=== PATIENT | female | born 1975 | race Caucasian/White ===

== ENCOUNTER → 2022-07-12 | Outpatient (CLI) | payer BC ==
[2022-07-12 14:11] LABS: BASO % 0.3 % (0.0-1.0); EOS # 0.1 10^3/uL (0.0-0.5); EOS % 1.3 % (0.0-3.0); HEMATOCRIT 22.8 % (36.0-47.0); LYMPH # 0.8 10^3/uL (1.5-5.0); LYMPH % 11.7 % (24.0-44.0); MEAN CORPUSCULAR VOLUME 68.1 fl (80.0-96.0); MONO # 0.5 10^3/uL (0.0-0.8); MONO % 7.4 % (2.0-8.0); NEUTROPHILS # 5.6 10^3/uL (1.5-8.5); PLATELET COUNT, AUTOMATED 334 10^3/uL (150-450); RED BLOOD COUNT 3.35 10^6/uL (4.00-5.40)
[2022-07-12 14:27] LABS: INR 1.1; PROTHROMBIN TIME 14.5 SECONDS (12.5-14.5)
[2022-07-12 14:28] LABS: PARTIAL THROMBOPLASTIN TIME 28.4 SECONDS (24.8-34.2)
[2022-07-12 14:47] LABS: HEMOGLOBIN 5.7 g/dl (12.0-15.5)
[2022-07-12 14:57] LABS: ALBUMIN 3.8 GM/DL (3.2-5.2); ALT/SGPT 17 U/L (12-78); BILIRUBIN,TOTAL 0.9 MG/DL (0.2-1.0); BLOOD UREA NITROGEN 10 MG/DL (7-18); CALCIUM LEVEL 8.9 MG/DL (8.5-10.1); CARBON DIOXIDE LEVEL 22 MEQ/L (21-32); CHLORIDE LEVEL 106 MEQ/L (98-107); FERRITIN < 3 NG/ML (8-252); FREE T4 1.04 NG/DL (0.76-1.46); GLOMERULAR FILTRATION RATE > 60.0 (>58); GLUCOSE, FASTING 111 MG/DL (70-100); POTASSIUM SERUM 4.1 MEQ/L (3.5-5.1); SODIUM LEVEL 137 MEQ/L (136-145); TOTAL PROTEIN 9.7 GM/DL (6.4-8.2)
== END ==
LOC: M PLALAB 10:52
PROVIDERS: ATTEND Family Medicine
DX: D64.9 Anemia, unspecified (principal); I10 Essential (primary) hypertension

== ENCOUNTER → 2022-07-12 | Outpatient (REF) | payer BC | LOC: M SFHCPLAZ 11:49 | PROVIDERS: ATTEND Family Medicine | DX: I10 Essential (primary) hypertension (principal); D64.9 Anemia, unspecified; N92.1 Excessive and frequent menstruation with irregular cycle ==

== ENCOUNTER → 2022-07-17 | Outpatient (CLI) | payer BC ==
[~2022-07-17] MED LIST: BIOT1CAP2 PO; IRON100T PO; LOSA50TA5 PO
== END ==
LOC: M LAB 17:02
PROVIDERS: ATTEND Family Medicine
DX: D64.9 Anemia, unspecified (principal)

== ENCOUNTER 2022-07-18 08:59 | Outpatient (CLI) | payer BC ==
[~2022-07-18] VITALS: Ht 170.2 cm; Wt 84.0 kg
[2022-07-18] VITALS (8 sets, daily range): BP systolic 137–163; BP diastolic 61–75
[~2022-07-18 08:59] MED LIST changes: +ACETAMINOPHEN 500 MG TAB PO PRN; -BIOT1CAP2 PO; -IRON100T PO; -LOSA50TA5 PO; +diphenhydrAMINE 25MG CAP PO PRN
[2022-07-18] MEDS ORDERED: IRON100T PO (09:30)
[2022-07-18] MEDS ORDERED: BIOT1CAP2 PO (09:30)
[2022-07-18] MEDS ORDERED: LOSA50TA5 PO (09:30)
== END 2022-07-18 13:10 | disposition home or self-care (01) ==
LOC: M INFU 08:59
PROVIDERS: ATTEND Family Medicine
DX: D50.0 Iron deficiency anemia secondary to blood loss (chronic) (principal); Z88.6 Allergy status to analgesic agent; Z91.030 Bee allergy status
CPT/HCPCS: 36430; 86905; 86920; P9016

== ENCOUNTER → 2022-08-06 | Outpatient (CLI) | payer BC ==
[~2022-08-06] MED LIST changes: -ACETAMINOPHEN 500 MG TAB PO PRN; +BIOT1CAP2 PO; +IRON100T PO; +LOSA50TA5 PO; -diphenhydrAMINE 25MG CAP PO PRN
[2022-08-06 15:04] LABS: HEMATOCRIT 27.9 % (36.0-47.0); HEMOGLOBIN 7.8 g/dl (12.0-15.5); MEAN CORPUSCULAR HEMOGLOBIN 21.1 pg (27.0-33.0); MEAN CORPUSCULAR VOLUME 75.6 fl (80.0-96.0); PLATELET COUNT, AUTOMATED 358 10^3/uL (150-450); RED BLOOD COUNT 3.69 10^6/uL (4.00-5.40); WHITE BLOOD COUNT 6.3 10^3/uL (4.0-10.0)
[2022-08-06 15:16] LABS: CARBON DIOXIDE LEVEL 26 MMOL/L (20-31); CHLORIDE LEVEL 103 MMOL/L (98-107); SODIUM LEVEL 139 MMOL/L (136-145)
[2022-08-06 15:21] LABS: CALCIUM LEVEL 9.2 MG/DL (8.5-10.1)
[2022-08-06 15:22] LABS: BLOOD UREA NITROGEN 14 MG/DL (9-23); GLUCOSE, FASTING 94 MG/DL (60-100)
[2022-08-06 15:24] LABS: CREATININE FOR GFR 0.76 MG/DL (0.55-1.30); GLOMERULAR FILTRATION RATE > 60.0 (>58); IRON (FE) 23 UG/DL (50-170); PERCENT SATURATION 5.6 % (13.2-45.0); TOTAL IRON BINDING CAPACITY 409 UG/DL (250-425)
[2022-08-06 15:28] LABS: FERRITIN 7.2 NG/ML (7.3-270.7)
[2022-08-06 15:32] LABS: CREATININE, URINE 182.1 MG/DL
[2022-08-06 15:33] LABS: MALB URINE SIEMENS < 5.0 MG/DL; MAU/CREAT RATIO 2.7 MCG/MG (0.0-30.0)
== END ==
LOC: M PLALAB 10:01
PROVIDERS: ATTEND Family Medicine
DX: D64.9 Anemia, unspecified (principal)

== ENCOUNTER 2022-08-15 11:40 | Outpatient (CLI) | payer BC ==
[~2022-08-15] VITALS: Ht 170.2 cm; Wt 84.5 kg
[2022-08-15 11:40] VITALS: BP 142/63
[~2022-08-15 11:40] MED LIST changes: +ALBUTEROL SULFATE 2.5 MG/0.5 ML INH NEB SOLN INH PRN; +EPINEPHrine INJ 1 MG/ML 1ML AMP IM PRN; +diphenhydrAMINE 50MG/ML VIAL IV PRN; +methylPREDNISolone 125MG 2ML VIAL IV PRN
[2022-08-15] MEDS ORDERED: NS 1,000 ML IV SCH (12:00)
[2022-08-15] MEDS ORDERED: IRON SUCROSE 300 MG in NS 250 ML OVER 90 MIN. IV ONE (12:00)
[2022-08-15 13:45] VITALS: BP 134/63
== END 2022-08-15 13:45 | disposition home or self-care (01) ==
LOC: M INFU 11:40
PROVIDERS: ATTEND Family Medicine
DX: D50.9 Iron deficiency anemia, unspecified (principal); Z88.5 Allergy status to narcotic agent
CPT/HCPCS: 96365; J1756

== ENCOUNTER 2022-08-23 12:40 | Outpatient (CLI) | payer BC ==
[~2022-08-23 12:40] MED LIST changes: -ALBUTEROL SULFATE 2.5 MG/0.5 ML INH NEB SOLN INH PRN; -EPINEPHrine INJ 1 MG/ML 1ML AMP IM PRN; -diphenhydrAMINE 50MG/ML VIAL IV PRN; -methylPREDNISolone 125MG 2ML VIAL IV PRN
[2022-08-23] MEDS ORDERED: IRON SUCROSE 300 MG in NS 250 ML OVER 90 MIN. IV ONE (13:00)
[2022-08-23 13:40] VITALS: BP 146/72
[2022-08-23 14:50] VITALS: BP 133/71
== END 2022-08-23 14:55 | disposition home or self-care (01) ==
LOC: M INFU 12:40
PROVIDERS: ATTEND Family Medicine
DX: D50.9 Iron deficiency anemia, unspecified (principal); Z88.5 Allergy status to narcotic agent
CPT/HCPCS: 96365; 96366; J1756

== ENCOUNTER 2022-08-29 12:25 | Outpatient (CLI) | payer BC ==
[~2022-08-29] VITALS: Ht 170.2 cm; Wt 84.0 kg
[2022-08-29] MEDS ORDERED: IRON SUCROSE 300 MG in NS 250 ML OVER 90 MIN. IV ONE (12:30)
[2022-08-29 12:32] VITALS: BP 151/75
[2022-08-29 14:00] VITALS: BP 130/66
[2022-08-29 15:00] VITALS: BP 137/71
== END 2022-08-29 15:00 | disposition home or self-care (01) ==
LOC: M INFU 12:25
PROVIDERS: ATTEND Family Medicine
DX: D50.9 Iron deficiency anemia, unspecified (principal); Z88.5 Allergy status to narcotic agent
CPT/HCPCS: 96365; 96366; J1756

== ENCOUNTER → 2022-09-11 | Outpatient (CLI) | payer BC ==
[2022-09-11 18:43] LABS: HEMATOCRIT 23.3 % (36.0-47.0); HEMOGLOBIN 7.1 g/dl (12.0-15.5); MEAN CORPUSCULAR HEMOGLOBIN 26.3 pg (27.0-33.0); MEAN CORPUSCULAR HGB CONC 30.5 g/dl (32.0-36.5); MEAN CORPUSCULAR VOLUME 86.3 fl (80.0-96.0); PLATELET COUNT, AUTOMATED 325 10^3/uL (150-450); WHITE BLOOD COUNT 9.6 10^3/uL (4.0-10.0)
== END ==
LOC: M PLALAB 14:45
PROVIDERS: ATTEND Family Medicine
DX: N92.1 Excessive and frequent menstruation with irregular cycle (principal)

== ENCOUNTER 2022-09-16 12:09 | Inpatient (IN) | payer BC ==
[2022-09-16] VITALS (9 sets, daily range): BP systolic 131–153; BP diastolic 64–77
[~2022-09-16] VITALS: Ht 170.2 cm; Wt 85.5 kg
[2022-09-16] MEDS ORDERED: LARI1TAB5 PO (12:23)
[2022-09-16 12:48] LABS: BASO % 0.2 % (0.0-1.0); EOS # 0.1 10^3/uL (0.0-0.5); EOS % 0.3 % (0.0-3.0); HEMATOCRIT 24.5 % (36.0-47.0); HEMOGLOBIN 7.3 g/dl (12.0-15.5); LYMPH # 0.9 10^3/uL (1.5-5.0); LYMPH % 4.9 % (24.0-44.0); MEAN CORPUSCULAR HEMOGLOBIN 25.7 pg (27.0-33.0); MEAN CORPUSCULAR HGB CONC 29.8 g/dl (32.0-36.5); MEAN CORPUSCULAR VOLUME 86.3 fl (80.0-96.0); MONO # 0.9 10^3/uL (0.0-0.8); MONO % 4.9 % (2.0-8.0); NEUTROPHILS # 16.1 10^3/uL (1.5-8.5); NEUTROPHILS % 89.1 % (36.0-66.0); PLATELET COUNT, AUTOMATED 423 10^3/uL (150-450); RED BLOOD COUNT 2.84 10^6/uL (4.00-5.40); WHITE BLOOD COUNT 18.1 10^3/uL (4.0-10.0)
[2022-09-16 13:16] LABS: BLOOD UREA NITROGEN 15 MG/DL (9-23); CALCIUM LEVEL 8.6 MG/DL (8.5-10.1); CARBON DIOXIDE LEVEL 22 MMOL/L (20-31); CHLORIDE LEVEL 103 MMOL/L (98-107); CREATININE FOR GFR 0.98 MG/DL (0.55-1.30); GLOMERULAR FILTRATION RATE > 60.0 (>58); GLUCOSE, FASTING 138 MG/DL (60-100); POTASSIUM SERUM 4.6 MMOL/L (3.5-5.1); SODIUM LEVEL 136 MMOL/L (136-145)
[2022-09-16 14:53] LABS: HEMATOCRIT 19.7 % (36.0-47.0)
[2022-09-16] MEDS ORDERED: D5W/0.45% SODIUM CHLORIDE 1,000 ML IV SCH (18:50)
[2022-09-16] MEDS ORDERED: medroxyPROGESTERone 5MG TABLET PO STA (18:51)
[2022-09-16 19:35] LABS: RSV AMPLIFICATION NEGATIVE (NEGATIVE)
[2022-09-16] MEDS ORDERED: IBUP-1764 PO (20:13)
[2022-09-16] MEDS ORDERED: HOME MED LIST COMPLETE! XX SCH (20:15)
[2022-09-17 00:55] VITALS: BP 136/63
[2022-09-17 01:09] VITALS: BP 142/72
[2022-09-17 01:21] VITALS: BP 161/80
[2022-09-17] MEDS ORDERED: ACETAMINOPHEN TAB 650MG DOSE (2X325MG) PO ONE (02:00)
[2022-09-17] MEDS ORDERED: FUROSEMIDE 20MG/2ML VIAL IV ONE (02:00)
[2022-09-17 02:38] LABS: HEMATOCRIT 30.3 % (36.0-47.0)
[2022-09-17 02:43] LABS: HEMOGLOBIN 9.7 g/dl (12.0-15.5)
[2022-09-17] MEDS: GASTROGRAFIN SOLUTION 30ML PO SCH ×2 (05:44→06:21)
[2022-09-17 06:31] LABS: BASO % 0.2 % (0.0-1.0); EOS # 0.1 10^3/uL (0.0-0.5); EOS % 0.7 % (0.0-3.0); HEMOGLOBIN 9.9 g/dl (12.0-15.5); LYMPH # 0.7 10^3/uL (1.5-5.0); LYMPH % 8.5 % (24.0-44.0); MEAN CORPUSCULAR HEMOGLOBIN 26.8 pg (27.0-33.0); MEAN CORPUSCULAR HGB CONC 31.9 g/dl (32.0-36.5); MEAN CORPUSCULAR VOLUME 83.8 fl (80.0-96.0); MONO # 0.6 10^3/uL (0.0-0.8); MONO % 6.5 % (2.0-8.0); NEUTROPHILS # 7.3 10^3/uL (1.5-8.5); NEUTROPHILS % 83.6 % (36.0-66.0); PLATELET COUNT, AUTOMATED 283 10^3/uL (150-450); WHITE BLOOD COUNT 8.7 10^3/uL (4.0-10.0)
[2022-09-17 06:53] LABS: BLOOD UREA NITROGEN 15 MG/DL (9-23); CARBON DIOXIDE LEVEL 26 MMOL/L (20-31); CHLORIDE LEVEL 104 MMOL/L (98-107); CREATININE FOR GFR 0.96 MG/DL (0.55-1.30); GLOMERULAR FILTRATION RATE > 60.0 (>58); GLUCOSE, FASTING 101 MG/DL (60-100); POTASSIUM SERUM 3.7 MMOL/L (3.5-5.1); SODIUM LEVEL 139 MMOL/L (136-145)
[2022-09-17 07:00] VITALS: BP 143/73
[2022-09-17] MEDS ORDERED: ISOVUE-370 76% 100ML VIAL As Ordered ONE (07:24)
[2022-09-17] MEDS ORDERED: ACET-907 PO (14:52)
[2022-09-17] MEDS ORDERED: FERR325T3 PO (14:59)
== END 2022-09-17 10:45 | disposition home or self-care (01) | DRG 530 ==
LOC: M ED 12:09 → M ED INP 18:45
PROVIDERS: ADMIT Internal Medicine; ATTEND Internal Medicine
PROC: 30233N1 Transfusion of Nonautologous Red Blood Cells into Peripheral Vein, Percutaneous Approach (ICD-10-PCS; principal; 2022-09-16)
DX: C53.9 Malignant neoplasm of cervix uteri, unspecified (principal); D62 Acute posthemorrhagic anemia; I10 Essential (primary) hypertension; G43.909 Migraine, unspecified, not intractable, without status migrainosus; Z90.49 Acquired absence of other specified parts of digestive tract; L30.9 Dermatitis, unspecified; G25.0 Essential tremor; Z79.899 Other long term (current) drug therapy; Z91.030 Bee allergy status; Z88.5 Allergy status to narcotic agent

== ENCOUNTER → 2022-10-07 | Outpatient (CLI) | payer BC ==
[~2022-10-07] MED LIST changes: +ACET-907 PO; +FERR325T3 PO; +IBUP-1764 PO; +LARI1TAB5 PO; +NORT1TAB3 PO
[2022-10-07 14:57] LABS: BASO % 0.3 % (0.0-1.0); EOS # 0.1 10^3/uL (0.0-0.5); EOS % 0.6 % (0.0-3.0); LYMPH % 8.3 % (24.0-44.0); MEAN CORPUSCULAR HEMOGLOBIN 29.2 pg (27.0-33.0); MEAN CORPUSCULAR HGB CONC 32.1 g/dl (32.0-36.5); MEAN CORPUSCULAR VOLUME 90.9 fl (80.0-96.0); MONO # 0.7 10^3/uL (0.0-0.8); MONO % 5.7 % (2.0-8.0); NEUTROPHILS # 9.8 10^3/uL (1.5-8.5); NEUTROPHILS % 84.7 % (36.0-66.0); PLATELET COUNT, AUTOMATED 388 10^3/uL (150-450); RED BLOOD COUNT 3.08 10^6/uL (4.00-5.40); WHITE BLOOD COUNT 11.6 10^3/uL (4.0-10.0)
[2022-10-07 15:49] LABS: ALBUMIN 3.7 G/DL (3.2-5.2); ALKALINE PHOSPHATASE 45 U/L (46-116); ALT/SGPT 12 U/L (7.0-40); AST/SGOT 18 U/L (<34); BILIRUBIN,TOTAL 1.4 MG/DL (0.3-1.2); BLOOD UREA NITROGEN 16 MG/DL (9-23); CALCIUM LEVEL 8.8 MG/DL (8.5-10.1); CARBON DIOXIDE LEVEL 23 MMOL/L (20-31); CHLORIDE LEVEL 102 MMOL/L (98-107); CREATININE FOR GFR 0.86 MG/DL (0.55-1.30); GLOMERULAR FILTRATION RATE > 60.0 (>58); GLUCOSE, FASTING 103 MG/DL (60-100); POTASSIUM SERUM 3.5 MMOL/L (3.5-5.1); SODIUM LEVEL 135 MMOL/L (136-145); TOTAL PROTEIN 8.3 G/DL (5.7-8.2)
== END ==
LOC: M ONCR 12:56
PROVIDERS: ATTEND General Practice
DX: C56.2 Malignant neoplasm of left ovary (principal); I10 Essential (primary) hypertension; Z79.899 Other long term (current) drug therapy; Z80.3 Family history of malignant neoplasm of breast; Z87.442 Personal history of urinary calculi; Z88.5 Allergy status to narcotic agent; Z91.030 Bee allergy status; Z92.3 Personal history of irradiation
CPT/HCPCS: 36415; 80053; 85025; G0463

== ENCOUNTER → 2022-10-08 | Outpatient (RCR) | payer BC ==
[~2022-10-08] MED LIST changes: +FERR325T15 PO; +VITA-198 PO; +VITA500T16 PO
== END ==
LOC: M ONCR 14:21
PROVIDERS: ATTEND General Practice
DX: C53.8 Malignant neoplasm of overlapping sites of cervix uteri (principal)

== ENCOUNTER → 2022-10-21 | Outpatient (CLI) | payer BC ==
[~2022-10-21] MED LIST changes: +LIDO1CRE42 TOP; +LIDOCAINE 1% MDV 20ML VIAL As Ordered ONE; +LOPE1CAP5 PO; +MEPERIDINE 25 MG/ML 1ML VIAL As Ordered ONE; +METO10TA2 PO; +MIDAZOLAM INJ 2MG/2ML VIAL As Ordered ONE; +NS 1,000 ML IV SCH; +ONDA4TAB6 PO; +ceFAZolin 2 GM/D5W 50 ML IV BAG As Ordered ONE; +ceFAZolin SOD 2 GM in IV 1 EA IV ONE; +diphenhydrAMINE 50MG/ML VIAL As Ordered ONE; +fentaNYL 100 MCG/2 ML INJECTION As Ordered ONE
[2022-10-21 12:54] VITALS: BP 148/75
== END ==
LOC: M IRPRO 10:31
PROVIDERS: ATTEND Internal Medicine Medical Oncology
DX: C53.1 Malignant neoplasm of exocervix (principal)
CPT/HCPCS: 36561; 87635; J0690; J1200; J1642; J1644; J2250; J3010

== ENCOUNTER → 2022-10-23 | Outpatient (REF) | payer BC ==
[~2022-10-23] MED LIST changes: -LIDO1CRE42 TOP; -LIDOCAINE 1% MDV 20ML VIAL As Ordered ONE; -LOPE1CAP5 PO; -MEPERIDINE 25 MG/ML 1ML VIAL As Ordered ONE; -METO10TA2 PO; -MIDAZOLAM INJ 2MG/2ML VIAL As Ordered ONE; -NS 1,000 ML IV SCH; -ceFAZolin 2 GM/D5W 50 ML IV BAG As Ordered ONE; -ceFAZolin SOD 2 GM in IV 1 EA IV ONE; -diphenhydrAMINE 50MG/ML VIAL As Ordered ONE; -fentaNYL 100 MCG/2 ML INJECTION As Ordered ONE
== END ==
LOC: M LAB REF 08:16
PROVIDERS: ATTEND Internal Medicine Hematology
DX: Z01.89 Encounter for other specified special examinations (principal)

== ENCOUNTER 2022-10-24 06:26 | Outpatient (CLI) | payer BC ==
[~2022-10-24] VITALS: Ht 170.2 cm; Wt 83.2 kg
[2022-10-24 06:39] VITALS: BP 160/67
[2022-10-24] MEDS ORDERED: diphenhydrAMINE 25MG CAP PO SCH (07:00)
[2022-10-24] MEDS ORDERED: ACETAMINOPHEN TAB 650MG DOSE (2X325MG) PO SCH (07:01)
[2022-10-24 07:10] VITALS: BP 160/67
[2022-10-24 07:24] VITALS: BP 131/68
[2022-10-24 08:25] VITALS: BP 144/77
[2022-10-24 08:50] VITALS: BP 153/76
[2022-10-24 09:55] VITALS: BP 152/71
[2022-10-25] MEDS ORDERED: ONDA4TAB6 PO (15:40)
[2022-10-25] MEDS ORDERED: METO10TA2 PO (16:14)
== END 2022-10-24 10:05 | disposition home or self-care (01) ==
LOC: M INFU 06:26
PROVIDERS: ATTEND Internal Medicine Medical Oncology
DX: D64.9 Anemia, unspecified (principal); Z88.5 Allergy status to narcotic agent
CPT/HCPCS: 36430; P9016

== ENCOUNTER 2022-10-24 06:30 | Outpatient (CLI) | payer BC ==
[~2022-10-24] VITALS: Ht 167.6 cm; Wt 83.0 kg
[2022-10-24] MEDS ORDERED: ONDANSETRON 4MG 2ML VIAL IV PRN (07:55)
[2022-10-24] MEDS ORDERED: NORCO, ANEXSIA 5/325MG TABLET (HYDROcodone/ACETAMINOPHEN) PO PRN (07:55)
[2022-10-24] MEDS ORDERED: LR 1,000 ML IV SCH ×2 (07:55)
[2022-10-24] MEDS ORDERED: HYDROMORPHONE HCL 0.5 MG/ 0.5 ML SYRINGE IV PRN (07:55)
[2022-10-24] MEDS ORDERED: MEPERIDINE 25 MG/ML 1ML VIAL IV PRN (07:55)
[2022-10-24] MEDS ORDERED: LABETALOL 100MG/20ML VIAL IV PRN (07:55)
[2022-10-24] MEDS ORDERED: fentaNYL 100 MCG/2 ML INJECTION IV PRN (07:55)
[2022-10-24] MEDS ORDERED: NS 1,000 ML IV SCH (09:15)
[2022-10-24] MEDS ORDERED: ceFAZolin SOD 2 GM in IV 1 EA IV ONE (09:15)
[2022-10-24] MEDS ORDERED: LIDOCAINE 1% MDV 20ML VIAL As Ordered ONE (10:53)
[2022-10-24] MEDS ORDERED: diphenhydrAMINE 25MG CAP PO ONE (12:00)
[2022-10-24] MEDS ORDERED: ACETAMINOPHEN TAB 650MG DOSE (2X325MG) PO ONE (12:00)
[2022-10-24] MEDS ORDERED: ceFAZolin 2 GM/D5W 50 ML IV BAG As Ordered ONE (12:27)
[2022-10-24] MEDS ORDERED: ONDANSETRON 4MG 2ML VIAL IV ONE (13:55)
[2022-10-24 17:30] VITALS: BP 160/81
[2022-10-25] MEDS ORDERED: ONDA4TAB6 PO (15:40)
[2022-10-25] MEDS ORDERED: METO10TA2 PO (16:14)
[2022-10-30] MEDS ORDERED: LOPE1CAP5 PO (08:11)
[2022-10-30] MEDS ORDERED: LIDO1CRE42 TOP (08:11)
[2022-11-11] MEDS ORDERED: DEXA4TA PO (16:03)
[2022-11-21] MEDS ORDERED: POTA-151 PO (16:15)
[2022-12-20] MEDS ORDERED: ONDA4TAB6 PO ×2 (12:15→15:11)
[2022-12-20] MEDS ORDERED: METO10TA2 PO ×2 (12:15→15:11)
== END 2022-10-24 17:36 | disposition home or self-care (01) ==
LOC: M IRPRO 06:30
PROVIDERS: ATTEND Internal Medicine Medical Oncology
DX: C53.9 Malignant neoplasm of cervix uteri, unspecified (principal)
CPT/HCPCS: 36561; C1769; C1788; C1894; J0690; J1642; J1644; J2405; P9016

== ENCOUNTER → 2022-10-25 | Outpatient (POV) | payer BC ==
[~2022-10-25] MED LIST changes: +DEXA4TA PO; +LIDO1CRE42 TOP; +LOPE1CAP5 PO; +METO10TA2 PO
== END ==
LOC: M IRPOV 06:35
PROVIDERS: ATTEND Radiology Diagnostic Radiology
DX: Z01.89 Encounter for other specified special examinations (principal)

== ENCOUNTER → 2022-11-05 | Outpatient (RCR) | payer BC ==
[~2022-11-05] MED LIST changes: -DEXA4TA PO; +LIDOCAINE 2% 100MG/5ML SDV (FOR ANES.) As Ordered ONE; +MIDAZOLAM INJ 2MG/2ML VIAL As Ordered ONE; +fentaNYL 100 MCG/2 ML INJECTION As Ordered ONE; +propofoL 200 MG/20 ML VIAL As Ordered ONE
== END ==
LOC: M ONCR 10-09 10:41
PROVIDERS: ATTEND General Practice
DX: C53.8 Malignant neoplasm of overlapping sites of cervix uteri (principal)
CPT/HCPCS: 77300; 77301; 77336; 77338; 77386; 77470; J2250; J3010

== ENCOUNTER → 2022-11-12 | Outpatient (CLI) | payer BC ==
[~2022-11-12] MED LIST changes: +DEXA4TA PO; -LIDOCAINE 2% 100MG/5ML SDV (FOR ANES.) As Ordered ONE; -MIDAZOLAM INJ 2MG/2ML VIAL As Ordered ONE; +PROHANCE 279.3MG/ML 15ML VIAL As Ordered ONE; -fentaNYL 100 MCG/2 ML INJECTION As Ordered ONE; -propofoL 200 MG/20 ML VIAL As Ordered ONE
== END ==
LOC: M RAD 15:34
PROVIDERS: ATTEND General Practice
DX: C53.8 Malignant neoplasm of overlapping sites of cervix uteri (principal)

== ENCOUNTER 2022-11-22 15:32 | Outpatient (RCR) | payer BC ==
[~2022-11-22 15:32] MED LIST changes: +POTA-151 PO; -PROHANCE 279.3MG/ML 15ML VIAL As Ordered ONE
[2022-11-27] MEDS ORDERED: DEXA4TA PO (15:01)
[2022-11-29] MEDS ORDERED: CALC500T60 PO (08:51)
[2022-11-29] MEDS ORDERED: MAGN400T2 PO (08:51)
[2022-11-29] MEDS ORDERED: DEXA4TA PO (08:51)
[2022-11-29] MEDS ORDERED: LOPE2CA PO (08:51)
[2022-11-29] MEDS ORDERED: VITAD1000T PO (09:00)
[2022-12-02] MEDS ORDERED: TUMS500C PO (10:38)
[2022-12-02] MEDS ORDERED: LEVO1TAB39 PO (13:22)
== END 2022-12-06 ==
LOC: M ONCR 15:32
PROVIDERS: ATTEND General Practice
DX: C53.8 Malignant neoplasm of overlapping sites of cervix uteri (principal)

== ENCOUNTER 2022-11-27 11:44 | Inpatient (IN) | payer BC ==
[~2022-11-27] VITALS: Ht 165.1 cm; Wt 82.1 kg
[2022-11-27 12:30] VITALS: BP 132/62
[2022-11-27] MEDS ORDERED: ONDANSETRON 4MG 2ML VIAL IV PRN (13:15)
[2022-11-27] MEDS ORDERED: HEPARIN SOD (PORCINE) 5000UNITS/ML 1ML VIAL/SYRINGE SQ SCH (14:00)
[2022-11-27] MEDS: NS 1,000 ML IV SCH ×2 (14:17→22:37)
[2022-11-27 14:32] LABS: INR 1.01; PROTHROMBIN TIME 13.5 SECONDS (12.5-14.5)
[2022-11-27 14:33] LABS: EOS % 0.3 % (0.0-3.0); HEMATOCRIT 21.9 % (36.0-47.0); HEMOGLOBIN 7.8 g/dl (12.0-15.5); LYMPH % 0.8 % (24.0-44.0); MEAN CORPUSCULAR HEMOGLOBIN 31.3 pg (27.0-33.0); MEAN CORPUSCULAR HGB CONC 35.6 g/dl (32.0-36.5); MONO # 0.2 10^3/uL (0.0-0.8); MONO % 4.1 % (2.0-8.0); NEUTROPHILS # 3.3 10^3/uL (1.5-8.5); NEUTROPHILS % 91.8 % (36.0-66.0); PARTIAL THROMBOPLASTIN TIME 23.5 SECONDS (24.8-34.2); RED BLOOD COUNT 2.49 10^6/uL (4.00-5.40); WHITE BLOOD COUNT 3.6 10^3/uL (4.0-10.0)
[2022-11-27 14:41] LABS: PERCENT SATURATION 37.9 % (13.2-45.0)
[2022-11-27 14:45] LABS: PLATELET COUNT, AUTOMATED 84 10^3/uL (150-450)
[2022-11-27 14:48] LABS: MAGNESIUM LEVEL 0.9 MG/DL (1.8-2.4); PHOSPHORUS LEVEL 2.2 MG/DL (2.5-4.9)
[2022-11-27 14:49] LABS: ALBUMIN 3.6 G/DL (3.2-5.2); BILIRUBIN,TOTAL 0.6 MG/DL (0.3-1.2); CALCIUM LEVEL 5.1 MG/DL (8.5-10.1); CREATININE FOR GFR 1.26 MG/DL (0.55-1.30); GLOMERULAR FILTRATION RATE 48.5 (>58); POTASSIUM SERUM 3.5 MMOL/L (3.5-5.1); TOTAL PROTEIN 7.2 G/DL (5.7-8.2)
[2022-11-27] MEDS ORDERED: DEXA4TA PO (15:01)
[2022-11-27] MEDS ORDERED: HOME MED LIST COMPLETE! XX SCH (15:05)
[2022-11-27] MEDS ORDERED: POTASSIUM CHLORIDE 10MEQ SR TABLET PO ONE (15:45)
[2022-11-27] MEDS ORDERED: CALCIUM GLUCONATE 1,000 MG in D5W MINI-BAG PLUS 100 ML IV ONE (16:00)
[2022-11-27 16:07] VITALS: BP 136/68
[2022-11-27] MEDS: MAG SULF 1GM/100ML (MAG RUN) 1 GM in IV 1 EA IV SCH ×2 (16:16→17:34)
[2022-11-27] MEDS: KCL 20MEQ IN 100ML SWI (KRUN) 20 MEQ in IV 1 EA IV SCH ×4 (17:14→18:07)
[2022-11-27] MEDS ORDERED: POTASSIUM PHOSPHATE INJ 20 MMOL in D5W 250 ML IV ONE (19:00)
[2022-11-27 19:18] LABS: FERRITIN 533.4 NG/ML (7.3-270.7)
[2022-11-27 19:34] LABS: HEMOGLOBIN 7.2 g/dl (12.0-15.5); MEAN CORPUSCULAR HGB CONC 35.3 g/dl (32.0-36.5); MEAN CORPUSCULAR VOLUME 87.9 fl (80.0-96.0); RED BLOOD COUNT 2.32 10^6/uL (4.00-5.40)
[2022-11-27 19:37] LABS: HEMATOCRIT 20.4 % (36.0-47.0); PLATELET COUNT, AUTOMATED 78 10^3/uL (150-450)
[2022-11-27 19:47] LABS: CALCIUM LEVEL 5.6 MG/DL (8.5-10.1); CREATININE FOR GFR 1.2 MG/DL (0.55-1.30); GLOMERULAR FILTRATION RATE 51.3 (>58); POTASSIUM SERUM 3.7 MMOL/L (3.5-5.1)
[2022-11-27 20:15] VITALS: BP 122/58
[2022-11-28] VITALS (16 sets, daily range): BP systolic 103–154; BP diastolic 53–69
[2022-11-28 01:05] LABS: ALBUMIN 3.1 G/DL (3.2-5.2); BILIRUBIN,TOTAL 0.6 MG/DL (0.3-1.2); CALCIUM LEVEL 4.9 MG/DL (8.5-10.1); CREATININE FOR GFR 1.14 MG/DL (0.55-1.30); GLOMERULAR FILTRATION RATE 54.4 (>58); MAGNESIUM LEVEL 1.3 MG/DL (1.8-2.4); POTASSIUM SERUM 3.5 MMOL/L (3.5-5.1)
[2022-11-28] MEDS: CALCIUM GLUCONATE 1,000 MG in D5W MINI-BAG PLUS 100 ML IV SCH ×4 (01:28→08:39)
[2022-11-28] MEDS: MAG SULF 1GM/100ML (MAG RUN) 1 GM in IV 1 EA IV SCH ×2 (01:28→02:38)
[2022-11-28] MEDS ORDERED: ACETAMINOPHEN TAB 650MG DOSE (2X325MG) PO PRN (03:45)
[2022-11-28] MEDS ORDERED: CALCIUM GLUCONATE 1,000 MG in D5W MINI-BAG PLUS 100 ML IV SCH (04:00)
[2022-11-28] MEDS ORDERED: IBUPROFEN 400MG TAB PO ONE (04:00)
[2022-11-28] MEDS: NS 1,000 ML IV SCH (06:37)
[2022-11-28 06:45] LABS: MEAN CORPUSCULAR HEMOGLOBIN 30.4 pg (27.0-33.0); MEAN CORPUSCULAR VOLUME 89.5 fl (80.0-96.0); RED BLOOD COUNT 1.81 10^6/uL (4.00-5.40); WHITE BLOOD COUNT 1.6 10^3/uL (4.0-10.0)
[2022-11-28 07:04] LABS: ALBUMIN 2.9 G/DL (3.2-5.2); BILIRUBIN,TOTAL 0.6 MG/DL (0.3-1.2); CALCIUM LEVEL 5.5 MG/DL (8.5-10.1); CREATININE FOR GFR 1.1 MG/DL (0.55-1.30); GLOMERULAR FILTRATION RATE 56.7 (>58); MAGNESIUM LEVEL 1.7 MG/DL (1.8-2.4); POTASSIUM SERUM 3.2 MMOL/L (3.5-5.1); TOTAL PROTEIN 5.7 G/DL (5.7-8.2)
[2022-11-28 07:16] LABS: HEMATOCRIT 16.2 % (36.0-47.0); HEMOGLOBIN 5.5 g/dl (12.0-15.5); PLATELET COUNT, AUTOMATED 57 10^3/uL (150-450)
[2022-11-28 08:10] LABS: PTH INTACT 332.4 PG/ML (18.5-88.0); TOTAL 25(OH) VITAMIN D 13.2 NG/ML (20.0-100.0)
[2022-11-28] MEDS: MAGNESIUM OXIDE 400MG TAB (MAG-OX) PO SCH ×2 (08:39→20:25)
[2022-11-28] MEDS ORDERED: CALCIUM CARBONATE 500 MG CHEW U/D PO SCH (09:00)
[2022-11-28] MEDS ORDERED: LOPERAMIDE 2 MG CAPLET PO PRN (09:20)
[2022-11-28] MEDS: KCL 20MEQ IN 100ML SWI (KRUN) 20 MEQ in IV 1 EA IV SCH ×6 (10:33→13:05)
[2022-11-28] MEDS ORDERED: MAG SULF 1GM/100ML (MAG RUN) 1 GM in IV 1 EA IV ONE ×2 (13:00→18:00)
[2022-11-28 16:37] LABS: ALBUMIN 3.2 G/DL (3.2-5.2); ALKALINE PHOSPHATASE 53 U/L (46-116); ALT/SGPT 278 U/L (7.0-40); AST/SGOT 76 U/L (<34); BILIRUBIN,TOTAL 2.2 MG/DL (0.3-1.2); BLOOD UREA NITROGEN 14 MG/DL (9-23); CALCIUM LEVEL 6.4 MG/DL (8.5-10.1); CARBON DIOXIDE LEVEL 21 MMOL/L (20-31); CHLORIDE LEVEL 105 MMOL/L (98-107); CREATININE FOR GFR 0.92 MG/DL (0.55-1.30); GLOMERULAR FILTRATION RATE > 60.0 (>58); GLUCOSE, FASTING 121 MG/DL (60-100); MAGNESIUM LEVEL 1.7 MG/DL (1.8-2.4); PHOSPHORUS LEVEL 2.8 MG/DL (2.5-4.9); POTASSIUM SERUM 4.5 MMOL/L (3.5-5.1); SODIUM LEVEL 135 MMOL/L (136-145); TOTAL PROTEIN 6.3 G/DL (5.7-8.2)
[2022-11-28] MEDS ORDERED: CALCITRIOL 0.25 MCG CAP (S0169) PO ONE (17:00)
[2022-11-28] MEDS: VITAMIN D 1,000 INTERNATIONAL UNITS TABLET PO SCH (17:38)
[2022-11-28 19:29] LABS: HEMOGLOBIN 9.8 g/dl (12.0-15.5)
[2022-11-28] MEDS: CALCIUM CARB SUSP 1250MG/5ML UNIT DOSE CUP PO SCH ×2 (20:25→20:33)
[2022-11-28] MEDS: CALCIUM CARBONATE 500 MG CHEW U/D PO SCH (21:14)
[2022-11-29 00:33] VITALS: BP 145/67
[2022-11-29 04:35] LABS: HEMATOCRIT 25.4 % (36.0-47.0); MEAN CORPUSCULAR HEMOGLOBIN 31.3 pg (27.0-33.0); MEAN CORPUSCULAR HGB CONC 35.4 g/dl (32.0-36.5); MEAN CORPUSCULAR VOLUME 88.2 fl (80.0-96.0); RED BLOOD COUNT 2.88 10^6/uL (4.00-5.40); WHITE BLOOD COUNT 1.3 10^3/uL (4.0-10.0)
[2022-11-29 04:37] LABS: PLATELET COUNT, AUTOMATED 45 10^3/uL (150-450)
[2022-11-29 04:41] VITALS: BP 148/72
[2022-11-29 07:42] LABS: BASO % 0.8 % (0.0-1.0); LYMPH # 0.1 10^3/uL (1.5-5.0); LYMPH % 4.5 % (24.0-44.0); MONO # 0.1 10^3/uL (0.0-0.8); MONO % 7.6 % (2.0-8.0); NEUTROPHILS # 1.1 10^3/uL (1.5-8.5); NEUTROPHILS % 80.3 % (36.0-66.0)
[2022-11-29 07:49] LABS: ALBUMIN 3.1 G/DL (3.2-5.2); ALKALINE PHOSPHATASE 51 U/L (46-116); ALT/SGPT 230 U/L (7.0-40); AST/SGOT 56 U/L (<34); BLOOD UREA NITROGEN 17 MG/DL (9-23); CALCIUM LEVEL 7.1 MG/DL (8.5-10.1); CARBON DIOXIDE LEVEL 23 MMOL/L (20-31); CHLORIDE LEVEL 107 MMOL/L (98-107); GLOMERULAR FILTRATION RATE > 60.0 (>58); GLUCOSE, FASTING 86 MG/DL (60-100); MAGNESIUM LEVEL 1.5 MG/DL (1.8-2.4); POTASSIUM SERUM 4.5 MMOL/L (3.5-5.1); SODIUM LEVEL 135 MMOL/L (136-145)
[2022-11-29 08:22] VITALS: BP 142/66
[2022-11-29] MEDS ORDERED: CALC500T60 PO (08:51)
[2022-11-29] MEDS ORDERED: LOPE2CA PO (08:51)
[2022-11-29] MEDS ORDERED: MAGN400T2 PO (08:51)
[2022-11-29] MEDS ORDERED: DEXA4TA PO (08:51)
[2022-11-29] MEDS ORDERED: VITAD1000T PO (09:00)
[2022-11-29] MEDS ORDERED: MAG SULF 1GM/100ML (MAG RUN) 1 GM in IV 1 EA IV ONE (09:00)
[2022-11-29] MEDS ORDERED: CALCITRIOL 0.25 MCG CAP (S0169) PO ONE (09:00)
[2022-11-29] MEDS ORDERED: CALCIUM CARBONATE 500 MG CHEW U/D PO SCH (09:00)
[2022-11-29] MEDS: CALCIUM CARBONATE 500 MG CHEW U/D PO SCH (09:15)
[2022-11-29] MEDS: MAGNESIUM OXIDE 400MG TAB (MAG-OX) PO SCH (09:16)
[2022-11-29] MEDS: VITAMIN D 1,000 INTERNATIONAL UNITS TABLET PO SCH (09:16)
[2022-11-29] MEDS ORDERED: FILGRASTIM 480 MCG/0.8 ML SYRINGE **SC ADMINISTRATION ONLY SC ONE (10:00)
[2022-11-29] MEDS ORDERED: SODIUM CHLORIDE 0.9% INJ 10 ML SYR IV PRN (11:15)
[2022-11-30] MEDS ORDERED: SODIUM CHLORIDE 0.9% INJ 10 ML SYR IV SCH (09:00)
== END 2022-11-29 12:07 | disposition home or self-care (01) | DRG 249 ==
LOC: M PCU 11:53
PROVIDERS: ADMIT Internal Medicine Nephrology; ATTEND Internal Medicine
PROC: 30233N1 Transfusion of Nonautologous Red Blood Cells into Peripheral Vein, Percutaneous Approach (ICD-10-PCS; principal; 2022-11-28)
DX: K52.1 Toxic gastroenteritis and colitis (principal); D61.810 Antineoplastic chemotherapy induced pancytopenia; N17.9 Acute kidney failure, unspecified; I10 Essential (primary) hypertension; C53.9 Malignant neoplasm of cervix uteri, unspecified; E86.0 Dehydration; E21.1 Secondary hyperparathyroidism, not elsewhere classified; T45.1X5A Adverse effect of antineoplastic and immunosuppressive drugs, initial encounter; G25.0 Essential tremor; G43.909 Migraine, unspecified, not intractable, without status migrainosus; L30.9 Dermatitis, unspecified; E87.6 Hypokalemia; R74.01 Elevation of levels of liver transaminase levels; D50.9 Iron deficiency anemia, unspecified; Z79.899 Other long term (current) drug therapy; Z88.5 Allergy status to narcotic agent; Z91.030 Bee allergy status; Z91.040 Latex allergy status; Z90.49 Acquired absence of other specified parts of digestive tract

== ENCOUNTER → 2022-12-20 | Outpatient (CLI) | payer BC ==
[~2022-12-20] MED LIST changes: +CALC500T60 PO; +LEVO1TAB39 PO; +LOPE2CA PO; +MAGN400T2 PO; +TUMS500C PO; +VITAD1000T PO
== END ==
LOC: M ONCR 11:14
PROVIDERS: ATTEND Radiology Radiation Oncology
DX: C53.9 Malignant neoplasm of cervix uteri, unspecified (principal); R25.1 Tremor, unspecified; Z79.899 Other long term (current) drug therapy; Z88.5 Allergy status to narcotic agent; Z87.891 Personal history of nicotine dependence; Z91.030 Bee allergy status; Z91.040 Latex allergy status; Z92.21 Personal history of antineoplastic chemotherapy; Z92.3 Personal history of irradiation

== ENCOUNTER → 2023-03-10 | Outpatient (CLI) | payer BC | LOC: M PLARAD 07:32 | PROVIDERS: ATTEND General Practice | DX: C53.8 Malignant neoplasm of overlapping sites of cervix uteri (principal) | CPT/HCPCS: 78815; A9552 ==

== ENCOUNTER → 2023-04-15 | Outpatient (CLI) | payer BC ==
[~2023-04-15] MED LIST changes: -LIDO1CRE42 TOP; +LIDO30CR18 TOP
== END ==
LOC: M ONCR 15:11
PROVIDERS: ATTEND General Practice
DX: C53.9 Malignant neoplasm of cervix uteri, unspecified (principal); C77.5 Secondary and unspecified malignant neoplasm of intrapelvic lymph nodes; Z88.5 Allergy status to narcotic agent; Z87.891 Personal history of nicotine dependence; Z91.030 Bee allergy status; Z91.040 Latex allergy status; Z92.21 Personal history of antineoplastic chemotherapy; Z92.3 Personal history of irradiation

== ENCOUNTER 2023-05-06 14:19 | Outpatient (RCR) | payer BC | END 2023-05-08 | LOC: M ONCR 14:19 | PROVIDERS: ATTEND General Practice | DX: Z51.0 Encounter for antineoplastic radiation therapy (principal); C53.8 Malignant neoplasm of overlapping sites of cervix uteri ==

== ENCOUNTER → 2023-05-08 | Outpatient (CLI) | payer BC | LOC: M RAD 07:25 | PROVIDERS: ATTEND Internal Medicine Medical Oncology | DX: C53.9 Malignant neoplasm of cervix uteri, unspecified (principal) ==

== ENCOUNTER 2023-08-05 14:06 | Inpatient (IN) | payer BC ==
[~2023-08-05] VITALS: Ht 170.2 cm; Wt 81.8 kg
[~2023-08-05 14:06] MED LIST changes: +AMLO1TAB24; +BENA25CA4 PO; +LOSA50TA28; +MAGICMW PO; +OXYC-517 PO; +ZYRTTAB8 PO
[2023-08-05] MEDS ORDERED: SODIUM CHLORIDE 0.9% INJ 10 ML SYR IV PRN (14:25)
[2023-08-05 15:16] LABS: HEMATOCRIT 23.7 % (36.0-47.0); HEMOGLOBIN 8.1 g/dl (12.0-15.5); MEAN CORPUSCULAR HEMOGLOBIN 31.4 pg (27.0-33.0); MEAN CORPUSCULAR HGB CONC 34.2 g/dl (32.0-36.5); MEAN CORPUSCULAR VOLUME 91.9 fl (80.0-96.0); PLATELET COUNT, AUTOMATED 107 10^3/uL (150-450); RED BLOOD COUNT 2.58 10^6/uL (4.00-5.40); WHITE BLOOD COUNT 2.2 10^3/uL (4.0-10.0)
[2023-08-05 15:34] LABS: INR 1.09; PROTHROMBIN TIME 13.8 SECONDS (12.5-14.5)
[2023-08-05 15:35] LABS: PARTIAL THROMBOPLASTIN TIME 27.3 SECONDS (24.8-34.2)
[2023-08-05 15:43] LABS: RSV AMPLIFICATION NEGATIVE (NEGATIVE)
[2023-08-05 15:44] LABS: BLOOD UREA NITROGEN 27 MG/DL (9-23); CALCIUM LEVEL 8.2 MG/DL (8.5-10.1); CARBON DIOXIDE LEVEL 21 MMOL/L (20-31); CHLORIDE LEVEL 106 MMOL/L (98-107); CREATININE FOR GFR 1.39 MG/DL (0.55-1.30); GLOMERULAR FILTRATION RATE 43.3 (>58); GLUCOSE, FASTING 97 MG/DL (60-100); MAGNESIUM LEVEL 1.8 MG/DL (1.8-2.4); POTASSIUM SERUM 4.9 MMOL/L (3.5-5.1); SODIUM LEVEL 137 MMOL/L (136-145)
[2023-08-05 15:46] LABS: THYROID STIMULATING HORMONE 3.976 uIU/ML (0.55-4.78)
[2023-08-05 15:48] LABS: ANISOCYTOSIS 2+; BASOPHILS 1 % (0-1); LYMPHOCYTES 9 % (16-44); NEUTROPHILS 90 % (28-66); PLATELET ESTIMATE DECREASED (NORMAL)
[2023-08-05] MEDS ORDERED: NS 1,000 ML IV ONE (15:50)
[2023-08-05] MEDS ORDERED: amLODIPine 5 MG TAB PO ONE (16:20)
[2023-08-05] MEDS ORDERED: ISOVUE-370 76% 100ML VIAL As Ordered ONE (16:20)
[2023-08-05] MEDS ORDERED: LOSARTAN 50MG TABLET PO ONE (16:20)
[2023-08-05 18:26] LABS: CK-MB VALUE MASS < 1.0 NG/ML (<3.6)
[2023-08-05 18:27] LABS: CPK CREATINE PHOSPHOKINASE 44 U/L (34-145); MB/CK RELATIVE INDEX 2.27 (< OR =4)
[2023-08-05] MEDS: CETIRIZINE (ZyrTEC) 10 MG TAB PO SCH (21:00)
[2023-08-05] MEDS: NS 1,000 ML IV SCH (22:55)
[2023-08-05] MEDS ORDERED: MOM 30ML SUSPENSION UDC PO PRN (22:55)
[2023-08-05] MEDS ORDERED: IBUPROFEN 800 MG TAB PO PRN (23:00)
[2023-08-05] MEDS ORDERED: DIPH25TA4 PO (23:12)
[2023-08-05] MEDS ORDERED: AMLO1TAB24 PO (23:12)
[2023-08-05] MEDS ORDERED: SIME125T16 PO (23:12)
[2023-08-05] MEDS ORDERED: LOSA50TA28 PO (23:12)
[2023-08-05] MEDS ORDERED: IBUP-1730 PO (23:12)
[2023-08-05] MEDS ORDERED: CETI-24 PO (23:12)
[2023-08-05] MEDS ORDERED: HOME MED LIST COMPLETE! XX SCH (23:15)
[2023-08-06 02:27] VITALS: BP 162/79; TEMP 98.4; O2SAT 98
[2023-08-06] MEDS: LR 1,000 ML IV SCH ×2 (03:00→16:15)
[2023-08-06 05:53] VITALS: BP 141/85; TEMP 98.6; O2SAT 100
[2023-08-06] MEDS: HEPARIN SOD (PORCINE) 5000UNITS/ML 1ML VIAL/SYRINGE SC SCH ×3 (06:00→21:39)
[2023-08-06 06:36] LABS: HEMATOCRIT 21.3 % (36.0-47.0); HEMOGLOBIN 7.1 g/dl (12.0-15.5); MEAN CORPUSCULAR HEMOGLOBIN 31.3 pg (27.0-33.0); MEAN CORPUSCULAR HGB CONC 33.3 g/dl (32.0-36.5); MEAN CORPUSCULAR VOLUME 93.8 fl (80.0-96.0); PLATELET COUNT, AUTOMATED 107 10^3/uL (150-450); RED BLOOD COUNT 2.27 10^6/uL (4.00-5.40); WHITE BLOOD COUNT 2.3 10^3/uL (4.0-10.0)
[2023-08-06 06:49] LABS: CALCIUM LEVEL 7.9 MG/DL (8.5-10.1); CREATININE FOR GFR 1.34 MG/DL (0.55-1.30); GLOMERULAR FILTRATION RATE 45.1 (>58); POTASSIUM SERUM 4.6 MMOL/L (3.5-5.1)
[2023-08-06] MEDS ORDERED: ACETAMINOPHEN TAB 650MG DOSE (2X325MG) PO PRN (07:55)
[2023-08-06] MEDS ORDERED: oxyCODONE 5MG TAB PO PRN ×2 (07:55)
[2023-08-06] MEDS: NS 1,000 ML IV SCH (08:09)
[2023-08-06 08:26] LABS: VENOUS BASE EXCESS -5.2 (-2.0-2.0); VENOUS HCO3 20.1 MMOL/L (23.0-27.0); VENOUS O2 SATURATION 92.7 % (60.0-80.0); VENOUS PARTIAL PRESSURE CO2 38.4 mmHg (38.0-50.0); VENOUS PARTIAL PRESSURE O2 74.3 mmHg (30.0-50.0); VENOUS PH 7.337 UNITS (7.330-7.430); VENOUS TOTAL CO2 21.3 MMOL/L (24.0-28.0)
[2023-08-06] MEDS ORDERED: SODIUM CHLORIDE 0.9% INJ 10 ML SYR IV SCH (09:00)
[2023-08-06 14:00] VITALS: BP 137/99; TEMP 98.8; O2SAT 100
[2023-08-06] MEDS ORDERED: PROHANCE 279.3MG/ML 5ML VIAL As Ordered ONE (14:06)
[2023-08-06] MEDS ORDERED: PROHANCE 279.3MG/ML 15ML VIAL As Ordered ONE (14:07)
[2023-08-06] MEDS: PROPRANOLOL 20 MG TAB PO SCH ×2 (15:25→21:59)
[2023-08-06 16:12] LABS: BASO % 0.9 % (0.0-1.0); EOS # 0.1 10^3/uL (0.0-0.5); EOS % 4.1 % (0.0-3.0); LYMPH # 0.2 10^3/uL (1.5-5.0); LYMPH % 10.6 % (24.0-44.0); MONO # 0.1 10^3/uL (0.0-0.8); MONO % 5.5 % (2.0-8.0); NEUTROPHILS # 1.7 10^3/uL (1.5-8.5); NEUTROPHILS % 77.5 % (36.0-66.0)
[2023-08-06 21:22] VITALS: BP 145/94; TEMP 98.8; O2SAT 99
[2023-08-06] MEDS ORDERED: diphenhydrAMINE 50MG CAP PO PRN (21:45)
[2023-08-06] MEDS: CETIRIZINE (ZyrTEC) 10 MG TAB PO SCH (21:59)
[2023-08-06] MEDS ORDERED: amLODIPine 5 MG TAB PO ONE (22:00)
[2023-08-06] MEDS ORDERED: LOSARTAN 50MG TABLET PO ONE (22:00)
[2023-08-07] VITALS (13 sets, daily range): BP systolic 126–159; BP diastolic 62–102; TEMP 97.8–99.3; O2SAT 96–100
[2023-08-07] MEDS: HEPARIN SOD (PORCINE) 5000UNITS/ML 1ML VIAL/SYRINGE SC SCH ×2 (06:00→13:43)
[2023-08-07 06:40] LABS: BASO % 0.7 % (0.0-1.0); EOS # 0.1 10^3/uL (0.0-0.5); EOS % 6.8 % (0.0-3.0); LYMPH # 0.1 10^3/uL (1.5-5.0); LYMPH % 8.2 % (24.0-44.0); MEAN CORPUSCULAR HEMOGLOBIN 32.1 pg (27.0-33.0); MEAN CORPUSCULAR VOLUME 94.3 fl (80.0-96.0); MONO # 0.1 10^3/uL (0.0-0.8); MONO % 7.5 % (2.0-8.0); NEUTROPHILS # 1.1 10^3/uL (1.5-8.5); NEUTROPHILS % 75.4 % (36.0-66.0); RED BLOOD COUNT 2.09 10^6/uL (4.00-5.40); WHITE BLOOD COUNT 1.5 10^3/uL (4.0-10.0)
[2023-08-07] MEDS: PROPRANOLOL 20 MG TAB PO SCH ×2 (06:51→15:27)
[2023-08-07 06:57] LABS: CALCIUM LEVEL 7.4 MG/DL (8.5-10.1); CREATININE FOR GFR 1.21 MG/DL (0.55-1.30); GLOMERULAR FILTRATION RATE 50.8 (>58); POTASSIUM SERUM 4.7 MMOL/L (3.5-5.1)
[2023-08-07 07:15] LABS: PLATELET COUNT, AUTOMATED 81 10^3/uL (150-450)
[2023-08-07 07:16] LABS: HEMOGLOBIN 6.7 g/dl (12.0-15.5)
[2023-08-07 07:17] LABS: HEMATOCRIT 19.7 % (36.0-47.0)
[2023-08-07] MEDS ORDERED: FILGRASTIM 480 MCG/0.8 ML SYRINGE **SC ADMINISTRATION ONLY SC SCH (09:00)
[2023-08-07 09:24] LABS: HEMATOCRIT 20.8 % (36.0-47.0); HEMOGLOBIN 6.9 g/dl (12.0-15.5)
[2023-08-07] MEDS: SODIUM BICARBONATE 325 MG TAB PO SCH ×2 (09:43→15:27)
[2023-08-07] MEDS ORDERED: FILG48VL SC (11:54)
[2023-08-07] MEDS ORDERED: SODI325T9 PO ×2 (11:54)
[2023-08-07] MEDS ORDERED: PROP20TA PO (11:54)
[2023-08-07] MEDS ORDERED: SODIUM CHLORIDE 0.9% INJ 10 ML SYR IV PRN (16:00)
[2023-08-07] MEDS ORDERED: amLODIPine 5 MG TAB PO SCH (21:00)
[2023-08-07] MEDS ORDERED: LOSARTAN 50MG TABLET PO SCH (21:00)
[2023-08-08] MEDS ORDERED: SODIUM CHLORIDE 0.9% INJ 10 ML SYR IV SCH (09:00)
== END 2023-08-07 16:40 | disposition home or self-care (01) | DRG 58 ==
LOC: M ED 14:06 → M ED INP 22:55 → M MSPAV 08-06 02:29
PROVIDERS: ADMIT Family Medicine; ATTEND Student in an Organized Health Care Education/Training Program
PROC: 30233N1 Transfusion of Nonautologous Red Blood Cells into Peripheral Vein, Percutaneous Approach (ICD-10-PCS; principal; 2023-08-05)
DX: G25.0 Essential tremor (principal); D61.810 Antineoplastic chemotherapy induced pancytopenia; E87.20 Acidosis, unspecified; N17.9 Acute kidney failure, unspecified; C53.9 Malignant neoplasm of cervix uteri, unspecified; I12.9 Hypertensive chronic kidney disease with stage 1 through stage 4 chronic kidney disease, or unspecified chronic kidney disease; E86.0 Dehydration; N18.30 Chronic kidney disease, stage 3 unspecified; K52.1 Toxic gastroenteritis and colitis; T45.1X5A Adverse effect of antineoplastic and immunosuppressive drugs, initial encounter; G43.909 Migraine, unspecified, not intractable, without status migrainosus; Z66 Do not resuscitate; L30.9 Dermatitis, unspecified; R53.1 Weakness; R42 Dizziness and giddiness; Z79.899 Other long term (current) drug therapy; Z91.030 Bee allergy status; Z88.5 Allergy status to narcotic agent; Z91.040 Latex allergy status; Z79.633 Long term (current) use of mitotic inhibitor

== ENCOUNTER → 2023-08-20 | Outpatient (CLI) | payer BC ==
[~2023-08-20] VITALS: Ht 170.2 cm; Wt 86.8 kg
[~2023-08-20] MED LIST changes: +AMLO1TAB24 PO; +CETI-24 PO; +DIPH25TA4 PO; +FILG48VL SC; +IBUP-1730 PO; +LOSA50TA28 PO; +PROP20TA PO; +SIME125T16 PO; +SODI325T9 PO
== END ==
LOC: M ONCR 07:36
PROVIDERS: ATTEND General Practice
DX: C53.8 Malignant neoplasm of overlapping sites of cervix uteri (principal); C77.2 Secondary and unspecified malignant neoplasm of intra-abdominal lymph nodes; Z71.2 Person consulting for explanation of examination or test findings; Z87.891 Personal history of nicotine dependence; Z79.891 Long term (current) use of opiate analgesic; Z79.899 Other long term (current) drug therapy; Z88.5 Allergy status to narcotic agent; Z91.030 Bee allergy status; Z91.040 Latex allergy status; Z92.21 Personal history of antineoplastic chemotherapy; Z92.29 Personal history of other drug therapy; Z92.3 Personal history of irradiation

== ENCOUNTER 2023-09-04 18:14 | Observation (INO) | payer BC ==
[~2023-09-04] VITALS: Ht 170.2 cm; Wt 78.0 kg
[~2023-09-04 18:14] MED LIST changes: +SODIUM CHLORIDE 0.9% INJ 10 ML SYR IV SCH
[2023-09-04 19:58] LABS: RSV AMPLIFICATION NEGATIVE (NEGATIVE)
[2023-09-04] MEDS ORDERED: NS 1,000 ML IV SCH (20:50)
[2023-09-04] MEDS ORDERED: MAALOX 30 ML SUSP *UDC PO PRN (20:50)
[2023-09-04] MEDS ORDERED: ACETAMINOPHEN TAB 650MG DOSE (2X325MG) PO PRN (20:50)
[2023-09-04] MEDS ORDERED: MOM 30ML SUSPENSION UDC PO PRN (20:50)
[2023-09-04] MEDS ORDERED: LOSARTAN 50MG TABLET PO SCH (21:00)
[2023-09-04] MEDS ORDERED: HOME MED LIST COMPLETE! XX SCH (21:00)
[2023-09-04] MEDS ORDERED: SODIUM CHLORIDE 0.9% INJ 10 ML SYR IV PRN (21:25)
[2023-09-04 22:20] VITALS: BP 146/77; TEMP 98.5; O2SAT 100
[2023-09-04 23:19] VITALS: BP 131/72; TEMP 99.7; O2SAT 100
[2023-09-04 23:34] VITALS: BP 146/73; TEMP 100.2; O2SAT 100
[2023-09-05] VITALS (11 sets, daily range): BP systolic 126–168; BP diastolic 71–87; TEMP 96.9–101.1; O2SAT 95–100
[2023-09-05] MEDS ORDERED: MAGIC MOUTHWASH SUSPENSION BTL PO PRN
[2023-09-05] MEDS ORDERED: SIMETHICONE 80MG CHEW TAB PO PRN
[2023-09-05] MEDS ORDERED: IBUPROFEN 800 MG TAB PO PRN
[2023-09-05] MEDS ORDERED: oxyCODONE 5MG TAB PO PRN
[2023-09-05] MEDS: diphenhydrAMINE 50MG CAP PO PRN ×2 (01:10→21:39)
[2023-09-05] MEDS: amLODIPine 5 MG TAB PO SCH ×2 (01:11→21:41)
[2023-09-05] MEDS: CETIRIZINE (ZyrTEC) 10 MG TAB PO SCH ×2 (01:11→21:39)
[2023-09-05] MEDS: PROPRANOLOL 20 MG TAB PO SCH ×3 (06:04→21:46)
[2023-09-05 06:28] LABS: HEMATOCRIT 22.5 % (36.0-47.0); HEMOGLOBIN 7.6 g/dl (12.0-15.5); MEAN CORPUSCULAR HEMOGLOBIN 32.6 pg (27.0-33.0); MEAN CORPUSCULAR HGB CONC 33.8 g/dl (32.0-36.5); MEAN CORPUSCULAR VOLUME 96.6 fl (80.0-96.0); RED BLOOD COUNT 2.33 10^6/uL (4.00-5.40); WHITE BLOOD COUNT 8.4 10^3/uL (4.0-10.0)
[2023-09-05 06:56] LABS: PLATELET COUNT, AUTOMATED 83 10^3/uL (150-450)
[2023-09-05 07:23] LABS: BILIRUBIN,TOTAL 3.6 MG/DL (0.3-1.2); CALCIUM LEVEL 7.4 MG/DL (8.5-10.1); CREATININE FOR GFR 2.01 MG/DL (0.55-1.30); GLOMERULAR FILTRATION RATE 28.1 (>58); MAGNESIUM LEVEL 1.6 MG/DL (1.8-2.4); POTASSIUM SERUM 4.4 MMOL/L (3.5-5.1); TOTAL PROTEIN 6.5 G/DL (5.7-8.2)
[2023-09-05] MEDS: SODIUM CHLORIDE 0.9% INJ 10 ML SYR IV SCH (08:31)
[2023-09-05] MEDS ORDERED: LR 1,000 ML IV ONE (08:55)
[2023-09-05] MEDS: LR 1,000 ML IV SCH ×2 (10:17→17:04)
[2023-09-05 12:04] LABS: HEMATOCRIT 21.6 % (36.0-47.0); HEMOGLOBIN 7.3 g/dl (12.0-15.5)
[2023-09-05 12:33] LABS: CK-MB VALUE MASS < 1.0 NG/ML (<3.6)
[2023-09-05 12:34] LABS: CALCIUM LEVEL 7.4 MG/DL (8.5-10.1); CREATININE FOR GFR 1.76 MG/DL (0.55-1.30); GLOMERULAR FILTRATION RATE 32.8 (>58); MAGNESIUM LEVEL 1.5 MG/DL (1.8-2.4); POTASSIUM SERUM 4.7 MMOL/L (3.5-5.1)
[2023-09-05 12:35] LABS: CPK CREATINE PHOSPHOKINASE 27 U/L (34-145)
[2023-09-05] MEDS: ONDANSETRON 4MG 2ML VIAL IV SCH ×3 (14:31→21:00)
[2023-09-05] MEDS ORDERED: MAGNESIUM OXIDE 400MG TAB (MAG-OX) PO SCH (16:00)
[2023-09-05] MEDS ORDERED: MAG SULF 1GM/100ML (MAG RUN) 1 GM in IV 1 EA IV ONE (16:00)
[2023-09-05 18:17] LABS: HEMATOCRIT 21.9 % (36.0-47.0); HEMOGLOBIN 7.6 g/dl (12.0-15.5)
[2023-09-05 18:37] LABS: CK-MB VALUE MASS < 1.0 NG/ML (<3.6)
[2023-09-05 18:39] LABS: CPK CREATINE PHOSPHOKINASE 26 U/L (34-145); MB/CK RELATIVE INDEX 3.84 (< OR =4)
[2023-09-05 18:42] LABS: CALCIUM LEVEL 7.8 MG/DL (8.5-10.1); CREATININE FOR GFR 1.66 MG/DL (0.55-1.30); GLOMERULAR FILTRATION RATE 35.1 (>58); POTASSIUM SERUM 4.7 MMOL/L (3.5-5.1)
[2023-09-05] MEDS: METOCLOPRAMIDE 10MG TAB PO PRN (22:38)
[2023-09-06] MEDS ORDERED: UNRESOLVED PATIENT OWN MED ORDER XX SCH (00:01)
[2023-09-06 00:22] VITALS: BP 142/75; TEMP 99.4; O2SAT 99
[2023-09-06] MEDS: ONDANSETRON 4MG 2ML VIAL IV SCH ×3 (01:00→09:00)
[2023-09-06 05:54] VITALS: BP 150/80
[2023-09-06] MEDS: PROPRANOLOL 20 MG TAB PO SCH (05:54)
[2023-09-06 06:17] LABS: HEMATOCRIT 22.4 % (36.0-47.0); HEMOGLOBIN 7.6 g/dl (12.0-15.5); MEAN CORPUSCULAR HEMOGLOBIN 32.6 pg (27.0-33.0); MEAN CORPUSCULAR HGB CONC 33.9 g/dl (32.0-36.5); MEAN CORPUSCULAR VOLUME 96.1 fl (80.0-96.0); RED BLOOD COUNT 2.33 10^6/uL (4.00-5.40); WHITE BLOOD COUNT 7.5 10^3/uL (4.0-10.0)
[2023-09-06 06:20] LABS: PLATELET COUNT, AUTOMATED 83 10^3/uL (150-450)
[2023-09-06 06:44] VITALS: BP 157/48; TEMP 98.7; O2SAT 100
[2023-09-06 06:44] LABS: CALCIUM LEVEL 7.6 MG/DL (8.5-10.1); CREATININE FOR GFR 1.67 MG/DL (0.55-1.30); GLOMERULAR FILTRATION RATE 34.9 (>58); MAGNESIUM LEVEL 1.6 MG/DL (1.8-2.4); POTASSIUM SERUM 4.5 MMOL/L (3.5-5.1)
[2023-09-06] MEDS ORDERED: MAG SULF 1GM/100ML (MAG RUN) 1 GM in IV 1 EA IV ONE (08:00)
[2023-09-06] MEDS: SODIUM CHLORIDE 0.9% INJ 10 ML SYR IV SCH (08:28)
[2023-09-06] MEDS: METOCLOPRAMIDE 10MG TAB PO PRN (08:28)
== END 2023-09-06 11:46 | disposition home or self-care (01) ==
LOC: M ED 18:14 → M ED INP 18:15 → M MSPAV 22:21
PROVIDERS: ADMIT Internal Medicine; ATTEND General Practice
DX: D50.0 Iron deficiency anemia secondary to blood loss (chronic) (principal); C53.9 Malignant neoplasm of cervix uteri, unspecified; R06.02 Shortness of breath; N17.9 Acute kidney failure, unspecified; K52.9 Noninfective gastroenteritis and colitis, unspecified; N18.30 Chronic kidney disease, stage 3 unspecified; G25.0 Essential tremor; L30.9 Dermatitis, unspecified; Z87.891 Personal history of nicotine dependence; Z20.822 Contact with and (suspected) exposure to COVID-19; Z66 Do not resuscitate; Z88.2 Allergy status to sulfonamides; Z88.5 Allergy status to narcotic agent; Z91.040 Latex allergy status; Z91.030 Bee allergy status; Z79.899 Other long term (current) drug therapy; Z79.3 Long term (current) use of hormonal contraceptives; Z82.49 Family history of ischemic heart disease and other diseases of the circulatory system; Z83.3 Family history of diabetes mellitus; Z82.0 Family history of epilepsy and other diseases of the nervous system
CPT/HCPCS: 36430; 76775; 80048; 80053; 81001; 82550; 82553; 83735; 84484; 85014; 85018; 85027; 85049; 85055; 86850; 86870; 86900; 86901; 86920; 87631; 96361; 96365; 96366; 96375; 96376; 99285; J2405; J3475; P9016

== ENCOUNTER → 2023-09-17 | Outpatient (CLI) | payer BC ==
[~2023-09-17] MED LIST changes: -SODIUM CHLORIDE 0.9% INJ 10 ML SYR IV SCH
== END ==
LOC: M LAB 15:27
PROVIDERS: ATTEND Internal Medicine Medical Oncology
DX: D64.9 Anemia, unspecified (principal)

== ENCOUNTER 2023-09-23 09:23 | Outpatient (CLI) | payer BC ==
[2023-09-23] VITALS (10 sets, daily range): BP systolic 119–143; BP diastolic 63–82; TEMP 97.4–98.4; O2SAT 96–100
[~2023-09-23] VITALS: Ht 170.2 cm; Wt 78.6 kg
[2023-09-23] MEDS ORDERED: SODIUM CHLORIDE 0.9% INJ 10 ML SYR IV PRN (09:40)
[2023-09-23] MEDS ORDERED: diphenhydrAMINE 25MG PO PRIOR TO INFUSION PO ONE (10:00)
[2023-09-23] MEDS ORDERED: ACETAMINOPHEN 650MG PO PRIOR TO INFUSION PO ONE (10:00)
== END 2023-09-23 16:00 | disposition home or self-care (01) ==
LOC: M INFU 09:23
PROVIDERS: ATTEND Internal Medicine Medical Oncology
DX: C53.9 Malignant neoplasm of cervix uteri, unspecified (principal); D64.9 Anemia, unspecified; Z88.2 Allergy status to sulfonamides; Z88.5 Allergy status to narcotic agent
CPT/HCPCS: 36430; 96523; P9016

== ENCOUNTER → 2023-09-24 | Outpatient (CLI) | payer BC ==
[~2023-09-24] MED LIST changes: +GASTROGRAFIN SOLUTION 30ML As Ordered ONE; +ISOVUE-370 76% 100ML VIAL As Ordered ONE
== END ==
LOC: M RAD 06:52
PROVIDERS: ATTEND Internal Medicine Medical Oncology
DX: C53.9 Malignant neoplasm of cervix uteri, unspecified (principal); R91.1 Solitary pulmonary nodule; Z90.49 Acquired absence of other specified parts of digestive tract; R16.1 Splenomegaly, not elsewhere classified; N28.89 Other specified disorders of kidney and ureter
CPT/HCPCS: 70491; 71260; 74177; Q9963; Q9967

== ENCOUNTER 2023-09-30 14:05 | Inpatient (IN) | payer BC ==
[~2023-09-30] VITALS: Ht 170.2 cm; Wt 70.9 kg
[~2023-09-30 14:05] MED LIST changes: -GASTROGRAFIN SOLUTION 30ML As Ordered ONE; -ISOVUE-370 76% 100ML VIAL As Ordered ONE
[2023-09-30] MEDS ORDERED: LORazepam 2 MG/ML 1ML VIAL IV STA (15:29)
[2023-09-30] MEDS ORDERED: ONDANSETRON 4MG 2ML VIAL IV ONE (15:30)
[2023-09-30] MEDS ORDERED: NS 1,000 ML IV ONE ×2 (15:30→20:25)
[2023-09-30] MEDS ORDERED: KETOROLAC 30 MG/ML 1ML VIAL IV ONE (15:30)
[2023-09-30 17:07] LABS: BASO % 0.2 % (0.0-1.0); EOS % 0.7 % (0.0-3.0); LYMPH # 0.4 10^3/uL (1.5-5.0); LYMPH % 9.1 % (24.0-44.0); MEAN CORPUSCULAR HEMOGLOBIN 31.8 pg (27.0-33.0); MEAN CORPUSCULAR HGB CONC 36.9 g/dl (32.0-36.5); MEAN CORPUSCULAR VOLUME 86.1 fl (80.0-96.0); MONO # 0.6 10^3/uL (0.0-0.8); NEUTROPHILS # 3.5 10^3/uL (1.5-8.5); NEUTROPHILS % 76.5 % (36.0-66.0); PLATELET COUNT, AUTOMATED 140 10^3/uL (150-450); RED BLOOD COUNT 1.51 10^6/uL (4.00-5.40); WHITE BLOOD COUNT 4.6 10^3/uL (4.0-10.0)
[2023-09-30 17:16] LABS: HEMOGLOBIN 4.8 g/dl (12.0-15.5)
[2023-09-30 17:27] LABS: ALBUMIN 3.1 G/DL (3.2-5.2); BILIRUBIN,DIRECT 0.8 MG/DL (<0.4); CREATININE FOR GFR 2.18 MG/DL (0.55-1.30); GLOMERULAR FILTRATION RATE 25.6 (>58); POTASSIUM SERUM 4.4 MMOL/L (3.5-5.1)
[2023-09-30 17:28] LABS: INR 1.19; PROTHROMBIN TIME 14.8 SECONDS (12.5-14.5)
[2023-09-30] MEDS ORDERED: MED REC IN PROGRESS XX SCH (18:15)
[2023-09-30] MEDS ORDERED: HYDROmorphone 2 MG TAB PO ONE (19:40)
[2023-09-30] MEDS ORDERED: LORazepam 2 MG/ML 1ML VIAL IV PRN (19:40)
[2023-09-30 19:50] LABS: RSV AMPLIFICATION NEGATIVE (NEGATIVE)
[2023-09-30] MEDS ORDERED: PROP20TA72 PO (20:45)
[2023-09-30] MEDS ORDERED: [UNRECOGNIZED DRUG - CODE] PO (20:45)
[2023-09-30] MEDS ORDERED: HOME MED LIST COMPLETE! XX SCH (20:50)
[2023-09-30] MEDS: PROPRANOLOL 20 MG TAB PO SCH (21:00)
[2023-09-30] MEDS ORDERED: LR 1,000 ML IV SCH (21:05)
[2023-09-30] MEDS ORDERED: MAGIC MOUTHWASH SUSPENSION BTL PO PRN (21:35)
[2023-09-30 21:40] VITALS: BP 134/83; TEMP 97.7; O2SAT 99
[2023-09-30] MEDS ORDERED: HYDROmorphone 2 MG TAB PO PRN (21:55)
[2023-09-30 21:58] LABS: FOLATE 6.7 NG/ML (>5.4)
[2023-09-30] MEDS ORDERED: PILL CUTTER 1 EACH XX PRN (22:05)
[2023-09-30] MEDS ORDERED: HYDROMORPHONE HCL 0.5 MG/ 0.5 ML SYRINGE IV PRN ×3 (22:15→23:55)
[2023-09-30] MEDS ORDERED: FAMOTIDINE IV BAG 20 MG in IV 1 EA IV ONE (23:00)
[2023-09-30] MEDS: LIDOCAINE 5% (LIDODERM) PATCH TD SCH (23:45)
[2023-10-01] VITALS (15 sets, daily range): BP systolic 124–140; BP diastolic 69–92; TEMP 97.1–97.5; O2SAT 96–99
[2023-10-01] MEDS: HYDROmorphone HCL 2MG/ML 1ML VIAL IV PRN ×5 (00:09→19:44)
[2023-10-01] MEDS: BACLOFEN 10 MG TAB PO ONE ×2 (00:46→03:02)
[2023-10-01] MEDS ORDERED: LORazepam 2 MG/ML 1ML VIAL IM STA (02:50)
[2023-10-01] MEDS ORDERED: LORazepam 1 MG TAB PO ONE (02:55)
[2023-10-01] MEDS: PROPRANOLOL 20 MG TAB PO SCH ×3 (03:01→21:30)
[2023-10-01] MEDS ORDERED: HEPARIN SOD (PORCINE) 5000UNITS/ML 1ML VIAL/SYRINGE SC SCH (06:00)
[2023-10-01 10:37] LABS: BASO % 0.2 % (0.0-1.0); HEMATOCRIT 21.6 % (36.0-47.0); LYMPH # 0.3 10^3/uL (1.5-5.0); LYMPH % 5.3 % (24.0-44.0); MEAN CORPUSCULAR HEMOGLOBIN 29.9 pg (27.0-33.0); MEAN CORPUSCULAR HGB CONC 34.7 g/dl (32.0-36.5); MEAN CORPUSCULAR VOLUME 86.1 fl (80.0-96.0); MONO # 0.5 10^3/uL (0.0-0.8); MONO % 9.9 % (2.0-8.0); NEUTROPHILS # 4.1 10^3/uL (1.5-8.5); PLATELET COUNT, AUTOMATED 148 10^3/uL (150-450); RED BLOOD COUNT 2.51 10^6/uL (4.00-5.40); WHITE BLOOD COUNT 4.9 10^3/uL (4.0-10.0)
[2023-10-01 10:41] LABS: HEMOGLOBIN 7.5 g/dl (12.0-15.5)
[2023-10-01] MEDS: LORazepam 2 MG/ML 1ML VIAL IV PRN (10:47)
[2023-10-01 11:00] LABS: ALBUMIN 2.9 G/DL (3.2-5.2); BILIRUBIN,TOTAL 2.7 MG/DL (0.3-1.2); CREATININE FOR GFR 1.89 MG/DL (0.55-1.30); GLOMERULAR FILTRATION RATE 30.2 (>58); PHOSPHORUS LEVEL 4.9 MG/DL (2.5-4.9); POTASSIUM SERUM 4.8 MMOL/L (3.5-5.1); TOTAL PROTEIN 7.8 G/DL (5.7-8.2)
[2023-10-01 11:02] LABS: PERCENT SATURATION 89.9 % (13.2-45.0)
[2023-10-01 11:20] LABS: FERRITIN 3013.8 NG/ML (7.3-270.7)
[2023-10-01] MEDS ORDERED: ONDANSETRON 4MG ORAL DISINTEGRATING TAB PO PRN (11:50)
[2023-10-01] MEDS: SODIUM BICARBONATE 150 MEQ in STERILE WATER LITER BAG 1,000 ML IV SCH (12:29)
[2023-10-01] MEDS: oxyCODONE 5MG TAB PO SCH ×2 (12:30→18:22)
[2023-10-01] MEDS: tiZANidine 4 MG TAB PO SCH ×2 (14:18→21:30)
[2023-10-01] MEDS: GABAPENTIN 100 MG CAP PO SCH ×2 (14:18→21:30)
[2023-10-01] MEDS ORDERED: SALIVA SUBSTITUTE(MOUTHKOTE) BTL MT PRN (20:55)
[2023-10-01] MEDS ORDERED: FAMOTIDINE IV BAG 20 MG in IV 1 EA IV ONE (21:00)
[2023-10-01] MEDS: LIDOCAINE 5% (LIDODERM) PATCH TD SCH (21:30)
[2023-10-02] VITALS (8 sets, daily range): BP systolic 118–148; BP diastolic 70–87; TEMP 97–97.8; O2SAT 95–100
[2023-10-02] MEDS: SODIUM BICARBONATE 150 MEQ in STERILE WATER LITER BAG 1,000 ML IV SCH (00:17)
[2023-10-02] MEDS: tiZANidine 4 MG TAB PO SCH (06:00)
[2023-10-02] MEDS: oxyCODONE 5MG TAB PO SCH ×4 (06:00→18:49)
[2023-10-02] MEDS: GABAPENTIN 100 MG CAP PO SCH ×3 (06:03→21:20)
[2023-10-02] MEDS: LORazepam 2 MG/ML 1ML VIAL IV PRN ×2 (06:24→21:17)
[2023-10-02 08:56] LABS: EOS % 0.8 % (0.0-3.0); LYMPH # 0.2 10^3/uL (1.5-5.0); MEAN CORPUSCULAR HEMOGLOBIN 30.6 pg (27.0-33.0); MEAN CORPUSCULAR HGB CONC 36.4 g/dl (32.0-36.5); MONO # 0.4 10^3/uL (0.0-0.8); MONO % 9.6 % (2.0-8.0); NEUTROPHILS % 83.1 % (36.0-66.0); PLATELET COUNT, AUTOMATED 124 10^3/uL (150-450); RED BLOOD COUNT 1.93 10^6/uL (4.00-5.40); WHITE BLOOD COUNT 3.6 10^3/uL (4.0-10.0)
[2023-10-02 08:57] LABS: HEMATOCRIT 16.2 % (36.0-47.0); HEMOGLOBIN 5.9 g/dl (12.0-15.5)
[2023-10-02 08:58] LABS: MEAN CORPUSCULAR VOLUME 83.9 fl (80.0-96.0)
[2023-10-02] MEDS: FAMOTIDINE 20MG/2ML VIAL IV SCH (09:00)
[2023-10-02 09:30] LABS: CALCIUM LEVEL 7.5 MG/DL (8.5-10.1); CREATININE FOR GFR 1.6 MG/DL (0.55-1.30); GLOMERULAR FILTRATION RATE 36.6 (>58); POTASSIUM SERUM 3.3 MMOL/L (3.5-5.1)
[2023-10-02] MEDS: PANTOPRAZOLE 40MG VIAL IV SCH ×2 (09:50→21:20)
[2023-10-02] MEDS: HYDROmorphone HCL 2MG/ML 1ML VIAL IV PRN ×2 (09:53→21:16)
[2023-10-02] MEDS ORDERED: tiZANidine 4 MG TAB PO PRN (11:05)
[2023-10-02] MEDS: PROMETHAZINE 25MG/ML 1ML VIAL IV PRN ×2 (11:32→18:49)
[2023-10-02] MEDS: SALIVA SUBSTITUTE(MOUTHKOTE) BTL MT SCH ×7 (11:32→22:00)
[2023-10-02] MEDS: PROPRANOLOL 20 MG TAB PO SCH ×2 (11:33→21:31)
[2023-10-02 11:52] LABS: MICROCYTOSIS 1+; OVALOCYTES 1+; PLATELET ESTIMATE DECREASED (NORMAL)
[2023-10-02] MEDS: dexAMETHasone 20MG/5ML VIAL IV SCH (12:21)
[2023-10-02] MEDS ORDERED: FAMOTIDINE IV BAG 20 MG in IV 1 EA IV SCH (14:00)
[2023-10-02] MEDS: KCL 40MEQ in NS 1000ML 1,000 ML IV SCH ×2 (15:44→21:18)
[2023-10-02] MEDS: LIDOCAINE 5% (LIDODERM) PATCH TD SCH (21:20)
[2023-10-03 00:05] VITALS: BP 142/86; TEMP 97.3; O2SAT 100
[2023-10-03] MEDS: oxyCODONE 5MG TAB PO SCH ×4 (00:10→18:29)
[2023-10-03] MEDS: SALIVA SUBSTITUTE(MOUTHKOTE) BTL MT SCH ×12 (00:10→22:27)
[2023-10-03 00:45] VITALS: BP 143/90; TEMP 98.2; O2SAT 100
[2023-10-03 05:18] VITALS: BP 126/71; TEMP 97; O2SAT 100
[2023-10-03] MEDS: PROMETHAZINE 25MG/ML 1ML VIAL IV PRN (05:33)
[2023-10-03] MEDS: GABAPENTIN 100 MG CAP PO SCH ×3 (06:47→21:06)
[2023-10-03 07:00] LABS: HEMOGLOBIN 7.6 g/dl (12.0-15.5); LYMPH # 0.3 10^3/uL (1.5-5.0); LYMPH % 10.4 % (24.0-44.0); MEAN CORPUSCULAR HEMOGLOBIN 30.9 pg (27.0-33.0); MEAN CORPUSCULAR HGB CONC 36.5 g/dl (32.0-36.5); MEAN CORPUSCULAR VOLUME 84.6 fl (80.0-96.0); MONO # 0.3 10^3/uL (0.0-0.8); MONO % 12.3 % (2.0-8.0); NEUTROPHILS # 2.1 10^3/uL (1.5-8.5); NEUTROPHILS % 76.6 % (36.0-66.0); PLATELET COUNT, AUTOMATED 111 10^3/uL (150-450); RED BLOOD COUNT 2.46 10^6/uL (4.00-5.40); WHITE BLOOD COUNT 2.7 10^3/uL (4.0-10.0)
[2023-10-03 07:11] LABS: HEMATOCRIT 20.8 % (36.0-47.0)
[2023-10-03 07:33] LABS: CALCIUM LEVEL 6.8 MG/DL (8.5-10.1); CREATININE FOR GFR 1.43 MG/DL (0.55-1.30); GLOMERULAR FILTRATION RATE 41.7 (>58); POTASSIUM SERUM 4.2 MMOL/L (3.5-5.1)
[2023-10-03] MEDS: PANTOPRAZOLE 40MG VIAL IV SCH ×2 (08:56→21:08)
[2023-10-03] MEDS: dexAMETHasone 20MG/5ML VIAL IV SCH (08:57)
[2023-10-03] MEDS: FAMOTIDINE 20MG/2ML VIAL IV SCH (08:57)
[2023-10-03] MEDS: PROPRANOLOL 20 MG TAB PO SCH ×2 (08:58→21:06)
[2023-10-03] MEDS: KCL 40MEQ in NS 1000ML 1,000 ML IV SCH (11:54)
[2023-10-03] MEDS ORDERED: fentaNYL 100 MCG/2 ML INJECTION As Ordered ONE (14:32)
[2023-10-03] MEDS ORDERED: LIDOCAINE 2% 100MG/5ML SDV (FOR ANES.) As Ordered ONE (14:32)
[2023-10-03] MEDS ORDERED: propofoL 200 MG/20 ML VIAL As Ordered ONE (14:48)
[2023-10-03 15:30] VITALS: BP 132/76; TEMP 97.3; O2SAT 100
[2023-10-03] MEDS: HYDROmorphone HCL 2MG/ML 1ML VIAL IV PRN ×2 (15:34→21:08)
[2023-10-03] MEDS: D5W/0.9% SODIUM CHLORIDE 1,000 ML IV SCH (15:34)
[2023-10-03] MEDS: PROMETHAZINE 25MG/ML 1ML VIAL IV SCH ×2 (15:35→18:29)
[2023-10-03] MEDS ORDERED: SUCRALFATE SUSP 1GM/10ML UD PO SCH (17:30)
[2023-10-03 20:23] VITALS: BP 153/89; TEMP 97.7; O2SAT 99
[2023-10-03] MEDS: LORazepam 2 MG/ML 1ML VIAL IV PRN (21:07)
[2023-10-03] MEDS: LIDOCAINE 5% (LIDODERM) PATCH TD SCH (21:08)
[2023-10-03] MEDS: ONDANSETRON 4MG 2ML VIAL IV SCH (21:08)
[2023-10-03 22:00] VITALS: BP 124/76; TEMP 98.2; O2SAT 99
[2023-10-04] MEDS: oxyCODONE 5MG TAB PO SCH ×4 (00:50→18:09)
[2023-10-04] MEDS: SALIVA SUBSTITUTE(MOUTHKOTE) BTL MT SCH ×12 (02:00→22:00)
[2023-10-04] MEDS: D5W/0.9% SODIUM CHLORIDE 1,000 ML IV SCH (03:09)
[2023-10-04] MEDS: PROMETHAZINE 25MG/ML 1ML VIAL IV SCH ×4 (05:31→19:00)
[2023-10-04] MEDS: GABAPENTIN 100 MG CAP PO SCH ×3 (05:43→21:16)
[2023-10-04 06:00] VITALS: BP 117/71; TEMP 96; O2SAT 99
[2023-10-04 07:10] LABS: EOS % 0.4 % (0.0-3.0); LYMPH # 0.3 10^3/uL (1.5-5.0); LYMPH % 9.5 % (24.0-44.0); MEAN CORPUSCULAR HEMOGLOBIN 30.5 pg (27.0-33.0); MEAN CORPUSCULAR HGB CONC 35.2 g/dl (32.0-36.5); MEAN CORPUSCULAR VOLUME 86.5 fl (80.0-96.0); MONO # 0.3 10^3/uL (0.0-0.8); MONO % 11.9 % (2.0-8.0); NEUTROPHILS # 2.2 10^3/uL (1.5-8.5); NEUTROPHILS % 76.8 % (36.0-66.0); PLATELET COUNT, AUTOMATED 110 10^3/uL (150-450); RED BLOOD COUNT 2.23 10^6/uL (4.00-5.40); WHITE BLOOD COUNT 2.9 10^3/uL (4.0-10.0)
[2023-10-04 07:12] LABS: HEMATOCRIT 19.3 % (36.0-47.0)
[2023-10-04 07:13] LABS: HEMOGLOBIN 6.8 g/dl (12.0-15.5)
[2023-10-04 07:33] LABS: CALCIUM LEVEL 7.4 MG/DL (8.5-10.1); CREATININE FOR GFR 1.38 MG/DL (0.55-1.30); GLOMERULAR FILTRATION RATE 43.4 (>58); POTASSIUM SERUM 3.9 MMOL/L (3.5-5.1)
[2023-10-04] MEDS: PANTOPRAZOLE 40MG VIAL IV SCH ×2 (09:23→21:18)
[2023-10-04] MEDS: dexAMETHasone 20MG/5ML VIAL IV SCH (09:24)
[2023-10-04] MEDS: ONDANSETRON 4MG 2ML VIAL IV SCH ×3 (09:24→21:18)
[2023-10-04] MEDS: FAMOTIDINE 20MG/2ML VIAL IV SCH (09:24)
[2023-10-04] MEDS: PROPRANOLOL 20 MG TAB PO SCH ×2 (09:25→21:17)
[2023-10-04] MEDS: SUCRALFATE 1 GM TAB PO SCH ×2 (11:59→16:48)
[2023-10-04 14:14] VITALS: BP 135/81; TEMP 97.5; O2SAT 98
[2023-10-04 14:45] VITALS: BP 126/74; TEMP 97.2; O2SAT 96
[2023-10-04 15:30] VITALS: BP 126/78; TEMP 97.2; O2SAT 97
[2023-10-04 16:32] VITALS: BP 133/76; TEMP 97.3; O2SAT 99
[2023-10-04] MEDS: LIDOCAINE 5% (LIDODERM) PATCH TD SCH (21:18)
[2023-10-04] MEDS: LORazepam 2 MG/ML 1ML VIAL IV PRN (21:18)
[2023-10-04 21:28] VITALS: BP 157/93; TEMP 97.3; O2SAT 99
[2023-10-05] MEDS: oxyCODONE 5MG TAB PO SCH ×4 (00:08→18:02)
[2023-10-05] MEDS: PROMETHAZINE 25MG/ML 1ML VIAL IV SCH (03:00)
[2023-10-05] MEDS: SALIVA SUBSTITUTE(MOUTHKOTE) BTL MT SCH ×12 (03:04→22:00)
[2023-10-05] MEDS: ONDANSETRON 4MG 2ML VIAL IV SCH ×2 (03:05→08:52)
[2023-10-05] MEDS: GABAPENTIN 100 MG CAP PO SCH ×3 (05:55→20:53)
[2023-10-05 05:58] VITALS: BP 133/72; TEMP 97.2; O2SAT 99
[2023-10-05 06:27] LABS: BASO % 0.3 % (0.0-1.0); EOS % 0.5 % (0.0-3.0); HEMATOCRIT 23.5 % (36.0-47.0); HEMOGLOBIN 8.3 g/dl (12.0-15.5); LYMPH # 0.3 10^3/uL (1.5-5.0); MEAN CORPUSCULAR HEMOGLOBIN 30.4 pg (27.0-33.0); MEAN CORPUSCULAR HGB CONC 35.3 g/dl (32.0-36.5); MEAN CORPUSCULAR VOLUME 86.1 fl (80.0-96.0); MONO # 0.4 10^3/uL (0.0-0.8); NEUTROPHILS # 2.8 10^3/uL (1.5-8.5); NEUTROPHILS % 77.8 % (36.0-66.0); PLATELET COUNT, AUTOMATED 129 10^3/uL (150-450); RED BLOOD COUNT 2.73 10^6/uL (4.00-5.40); WHITE BLOOD COUNT 3.7 10^3/uL (4.0-10.0)
[2023-10-05 06:53] LABS: CALCIUM LEVEL 7.9 MG/DL (8.5-10.1); CREATININE FOR GFR 1.44 MG/DL (0.55-1.30); GLOMERULAR FILTRATION RATE 41.4 (>58); POTASSIUM SERUM 4.3 MMOL/L (3.5-5.1)
[2023-10-05] MEDS: SUCRALFATE 1 GM TAB PO SCH ×3 (07:01→17:08)
[2023-10-05] MEDS: PROPRANOLOL 20 MG TAB PO SCH ×2 (08:50→20:54)
[2023-10-05] MEDS: PANTOPRAZOLE 40MG VIAL IV SCH ×2 (08:51→20:55)
[2023-10-05] MEDS: FAMOTIDINE 20MG/2ML VIAL IV SCH (08:51)
[2023-10-05] MEDS: dexAMETHasone 20MG/5ML VIAL IV SCH (08:52)
[2023-10-05] MEDS ORDERED: ONDANSETRON 4MG 2ML VIAL IV PRN (11:30)
[2023-10-05] MEDS: PROMETHAZINE 25 MG TAB PO SCH ×2 (12:48→17:08)
[2023-10-05 20:03] VITALS: BP 137/82; TEMP 97.5; O2SAT 100
[2023-10-05] MEDS: LIDOCAINE 5% (LIDODERM) PATCH TD SCH (20:55)
[2023-10-06] MEDS: oxyCODONE 5MG TAB PO SCH ×3 (00:25→11:12)
[2023-10-06] MEDS: SALIVA SUBSTITUTE(MOUTHKOTE) BTL MT SCH ×6 (02:00→10:12)
[2023-10-06] MEDS ORDERED: SODIUM CHLORIDE 0.9% INJ 10 ML SYR IV PRN (05:15)
[2023-10-06 05:43] VITALS: BP 150/88; TEMP 97.3; O2SAT 100
[2023-10-06] MEDS: GABAPENTIN 100 MG CAP PO SCH (05:57)
[2023-10-06 06:24] LABS: BASO % 0.3 % (0.0-1.0); EOS % 1.3 % (0.0-3.0); HEMATOCRIT 22.5 % (36.0-47.0); LYMPH # 0.3 10^3/uL (1.5-5.0); MEAN CORPUSCULAR HEMOGLOBIN 30.2 pg (27.0-33.0); MEAN CORPUSCULAR HGB CONC 35.6 g/dl (32.0-36.5); MEAN CORPUSCULAR VOLUME 84.9 fl (80.0-96.0); MONO # 0.3 10^3/uL (0.0-0.8); MONO % 10.6 % (2.0-8.0); NEUTROPHILS # 2.4 10^3/uL (1.5-8.5); NEUTROPHILS % 77.2 % (36.0-66.0); PLATELET COUNT, AUTOMATED 142 10^3/uL (150-450); RED BLOOD COUNT 2.65 10^6/uL (4.00-5.40); WHITE BLOOD COUNT 3.1 10^3/uL (4.0-10.0)
[2023-10-06 06:56] LABS: CALCIUM LEVEL 7.8 MG/DL (8.5-10.1); CREATININE FOR GFR 1.51 MG/DL (0.55-1.30); GLOMERULAR FILTRATION RATE 39.2 (>58); POTASSIUM SERUM 3.9 MMOL/L (3.5-5.1)
[2023-10-06] MEDS: PANTOPRAZOLE 40MG VIAL IV SCH (07:39)
[2023-10-06] MEDS: FAMOTIDINE 20MG/2ML VIAL IV SCH (07:39)
[2023-10-06] MEDS: dexAMETHasone 20MG/5ML VIAL IV SCH (07:39)
[2023-10-06 07:40] VITALS: BP 148/87
[2023-10-06] MEDS: SUCRALFATE 1 GM TAB PO SCH ×2 (07:40→11:11)
[2023-10-06] MEDS: PROPRANOLOL 20 MG TAB PO SCH (07:40)
[2023-10-06] MEDS: PROMETHAZINE 25 MG TAB PO SCH ×2 (07:40→11:11)
[2023-10-06] MEDS ORDERED: SODIUM CHLORIDE 0.9% INJ 10 ML SYR IV SCH (09:00)
[2023-10-06] MEDS ORDERED: FAMO40TA3 PO (10:33)
[2023-10-06] MEDS ORDERED: SUCR1TA PO (10:33)
[2023-10-06] MEDS ORDERED: PROM25TA12 PO (10:33)
[2023-10-06] MEDS ORDERED: PROT1TAB2 PO (10:33)
[2023-10-06] MEDS ORDERED: GABA-1171 PO (10:33)
[2023-10-06] MEDS ORDERED: PRED20TA PO (10:33)
== END 2023-10-06 11:50 | disposition home or self-care (01) | DRG 663 ==
LOC: EDBD 14:05 → M ED 14:05 → M ED INP 19:39 → M MS5PR 21:43 → OBSVTOIN 23:16
PROVIDERS: ADMIT Internal Medicine; ATTEND Family Medicine
PROC: 30233N1 Transfusion of Nonautologous Red Blood Cells into Peripheral Vein, Percutaneous Approach (ICD-10-PCS; 2023-09-30)
PROC: 0DB78ZX Excision of Stomach, Pylorus, Via Natural or Artificial Opening Endoscopic, Diagnostic (ICD-10-PCS; principal; 2023-10-03 15:30)
DX: D64.81 Anemia due to antineoplastic chemotherapy (principal); D69.59 Other secondary thrombocytopenia; C77.0 Secondary and unspecified malignant neoplasm of lymph nodes of head, face and neck; N17.9 Acute kidney failure, unspecified; E87.1 Hypo-osmolality and hyponatremia; N18.30 Chronic kidney disease, stage 3 unspecified; M25.552 Pain in left hip; R10.2 Pelvic and perineal pain; K52.9 Noninfective gastroenteritis and colitis, unspecified; R53.1 Weakness; R11.2 Nausea with vomiting, unspecified; G25.0 Essential tremor; T45.1X5A Adverse effect of antineoplastic and immunosuppressive drugs, initial encounter; D63.1 Anemia in chronic kidney disease; K29.80 Duodenitis without bleeding; R11.15 Cyclical vomiting syndrome unrelated to migraine; K12.31 Oral mucositis (ulcerative) due to antineoplastic therapy; D61.810 Antineoplastic chemotherapy induced pancytopenia; C53.9 Malignant neoplasm of cervix uteri, unspecified; E86.0 Dehydration; Z66 Do not resuscitate; K29.70 Gastritis, unspecified, without bleeding; L30.9 Dermatitis, unspecified; E80.6 Other disorders of bilirubin metabolism; E61.1 Iron deficiency; Z80.3 Family history of malignant neoplasm of breast; Z80.0 Family history of malignant neoplasm of digestive organs; Z91.030 Bee allergy status; Z79.899 Other long term (current) drug therapy; Z90.49 Acquired absence of other specified parts of digestive tract; Z91.040 Latex allergy status; Z88.2 Allergy status to sulfonamides; Z88.5 Allergy status to narcotic agent; Z80.51 Family history of malignant neoplasm of kidney

== ENCOUNTER → 2023-10-28 | Outpatient (CLI) | payer BC ==
[~2023-10-28] VITALS: Ht 170.2 cm; Wt 68.5 kg
[~2023-10-28] MED LIST changes: +CLAR5TAB11 PO; +FAMO40TA3 PO; +GABA-1171 PO; +MAGN400C PO; +PRED20TA PO; +PROM25TA12 PO; +PROP20TA72 PO; +PROT1TAB2 PO; +ROLA1CHW2 PO; +SUCR1TA PO; +TRAZ-257 PO; +[UNRECOGNIZED DRUG - CODE] PO
[2023-10-28 15:33] VITALS: BP 146/92; O2SAT 100
== END ==
LOC: M PAL 14:47
PROVIDERS: ATTEND Nurse Practitioner Adult Health
DX: M25.552 Pain in left hip (principal); M79.605 Pain in left leg; R10.2 Pelvic and perineal pain; D58.9 Hereditary hemolytic anemia, unspecified; D69.59 Other secondary thrombocytopenia; D64.81 Anemia due to antineoplastic chemotherapy; N18.30 Chronic kidney disease, stage 3 unspecified; R11.0 Nausea; D63.1 Anemia in chronic kidney disease; R53.1 Weakness; C53.9 Malignant neoplasm of cervix uteri, unspecified; Z66 Do not resuscitate; Z51.5 Encounter for palliative care; Z79.52 Long term (current) use of systemic steroids; Z79.899 Other long term (current) drug therapy; Z88.1 Allergy status to other antibiotic agents; Z88.2 Allergy status to sulfonamides; Z88.5 Allergy status to narcotic agent; Z87.442 Personal history of urinary calculi; Z87.891 Personal history of nicotine dependence; Z91.030 Bee allergy status; Z91.040 Latex allergy status; Z90.49 Acquired absence of other specified parts of digestive tract; Z92.21 Personal history of antineoplastic chemotherapy; Z92.3 Personal history of irradiation; Z98.51 Tubal ligation status

== ENCOUNTER 2023-11-07 15:41 | Inpatient (IN) | payer BC ==
[~2023-11-07] VITALS: Ht 170.2 cm; Wt 75.8 kg
[~2023-11-07 15:41] MED LIST changes: -AUGM500T34 PO; -PANT40TA29 PO; -PROBCAP14 PO; -SUCR1TAB56 PO
[2023-11-07 16:40] VITALS: BP 131/86; TEMP 97.9; O2SAT 99
[2023-11-07] MEDS: AMPICILLIN SOD/SULBACTAM SOD 3 GM in D5W MINI-BAG PLUS 100 ML IV SCH (18:54)
[2023-11-07 18:59] LABS: HEMOGLOBIN 9.1 g/dl (12.0-15.5); LYMPH # 0.3 10^3/uL (1.5-5.0); LYMPH % 3.2 % (24.0-44.0); MEAN CORPUSCULAR HGB CONC 32.5 g/dl (32.0-36.5); MEAN CORPUSCULAR VOLUME 98.6 fl (80.0-96.0); MONO # 0.3 10^3/uL (0.0-0.8); MONO % 3.2 % (2.0-8.0); NEUTROPHILS # 7.2 10^3/uL (1.5-8.5); NEUTROPHILS % 92.6 % (36.0-66.0); PLATELET COUNT, AUTOMATED 133 10^3/uL (150-450); RED BLOOD COUNT 2.84 10^6/uL (4.00-5.40); WHITE BLOOD COUNT 7.8 10^3/uL (4.0-10.0)
[2023-11-07 19:36] LABS: C REACTIVE PROTEIN QUANTITATIV 3.4 MG/DL (<1.0)
[2023-11-07 19:38] LABS: CALCIUM LEVEL 7.4 MG/DL (8.5-10.1); CREATININE FOR GFR 1.78 MG/DL (0.55-1.30); GLOMERULAR FILTRATION RATE 32.4 (>58); POTASSIUM SERUM 4.1 MMOL/L (3.5-5.1)
[2023-11-07 20:05] VITALS: BP 134/87; TEMP 97.9; O2SAT 100
[2023-11-07 20:09] LABS: HIV SCREEN CENTAUR SOURCE NEGATIVE (NEGATIVE)
[2023-11-07] MEDS: ACETAMINOPHEN TAB 650MG DOSE (2X325MG) PO PRN (20:32)
[2023-11-07] MEDS ORDERED: PERCOCET 5MG/325MG TAB PO PRN (22:15)
[2023-11-07] MEDS: PERCOCET 5MG/325MG TAB PO PRN (22:29)
[2023-11-07] MEDS ORDERED: GABA-1171 PO (23:35)
[2023-11-07] MEDS ORDERED: OXYC-517 PO (23:35)
[2023-11-07] MEDS ORDERED: PRED10TA2 PO (23:35)
[2023-11-07] MEDS ORDERED: AMOX500C PO (23:35)
[2023-11-07] MEDS ORDERED: PROM25TA12 PO (23:35)
[2023-11-07] MEDS ORDERED: PANT40TA29 PO (23:35)
[2023-11-07] MEDS ORDERED: SUCR1TAB56 PO (23:35)
[2023-11-07] MEDS ORDERED: LIDO30CR18 TOP (23:35)
[2023-11-07] MEDS ORDERED: HOME MED LIST COMPLETE! XX SCH (23:40)
[2023-11-08 05:15] VITALS: BP 142/88; TEMP 97.7; O2SAT 100
[2023-11-08 06:12] LABS: EOS # 0.1 10^3/uL (0.0-0.5); EOS % 1.4 % (0.0-3.0); HEMATOCRIT 24.3 % (36.0-47.0); HEMOGLOBIN 7.8 g/dl (12.0-15.5); LYMPH # 0.4 10^3/uL (1.5-5.0); LYMPH % 7.6 % (24.0-44.0); MEAN CORPUSCULAR HEMOGLOBIN 32.1 pg (27.0-33.0); MEAN CORPUSCULAR HGB CONC 32.1 g/dl (32.0-36.5); MONO # 0.3 10^3/uL (0.0-0.8); MONO % 5.1 % (2.0-8.0); NEUTROPHILS # 4.3 10^3/uL (1.5-8.5); NEUTROPHILS % 84.5 % (36.0-66.0); PLATELET COUNT, AUTOMATED 105 10^3/uL (150-450); RED BLOOD COUNT 2.43 10^6/uL (4.00-5.40); WHITE BLOOD COUNT 5.1 10^3/uL (4.0-10.0)
[2023-11-08 06:30] LABS: CALCIUM LEVEL 7.1 MG/DL (8.5-10.1); CREATININE FOR GFR 1.87 MG/DL (0.55-1.30); GLOMERULAR FILTRATION RATE 30.6 (>58); POTASSIUM SERUM 3.4 MMOL/L (3.5-5.1)
[2023-11-08] MEDS: POTASSIUM CHLORIDE 10MEQ SR TABLET PO ONE (08:00)
[2023-11-08 08:57] VITALS: BP 142/88
[2023-11-08] MEDS: PROPRANOLOL 20 MG TAB PO SCH (08:57)
[2023-11-08] MEDS: PANTOPRAZOLE 40MG TAB (PROTONIX) PO SCH (08:58)
[2023-11-08] MEDS: predniSONE 10MG TAB PO SCH (08:58)
[2023-11-08] MEDS: GABAPENTIN 100 MG CAP PO SCH (08:58)
[2023-11-08] MEDS: SUCRALFATE 1 GM TAB PO SCH (08:58)
[2023-11-08] MEDS: PROMETHAZINE 25 MG TAB PO PRN (09:01)
[2023-11-08] MEDS ORDERED: AUGM500T34 PO (10:03)
[2023-11-08] MEDS ORDERED: PROBCAP14 PO (10:03)
[2023-11-08] MEDS: SODIUM CHLORIDE 0.9% INJ 10 ML SYR IV PRN (10:53)
== END 2023-11-08 10:58 | disposition home or self-care (01) | DRG 114 ==
LOC: M ED 15:41 → M ED INP 16:06 → UNDOADMIN 16:06 → M MSPAV 16:06 → M ED 16:44
PROVIDERS: ADMIT Internal Medicine Nephrology; ATTEND Internal Medicine Nephrology
DX: K04.7 Periapical abscess without sinus (principal); C77.5 Secondary and unspecified malignant neoplasm of intrapelvic lymph nodes; D59.4 Other nonautoimmune hemolytic anemias; E83.42 Hypomagnesemia; N18.30 Chronic kidney disease, stage 3 unspecified; C53.9 Malignant neoplasm of cervix uteri, unspecified; M16.12 Unilateral primary osteoarthritis, left hip; G43.909 Migraine, unspecified, not intractable, without status migrainosus; L30.9 Dermatitis, unspecified; F41.9 Anxiety disorder, unspecified; G25.0 Essential tremor; K02.9 Dental caries, unspecified; Z66 Do not resuscitate; Z79.899 Other long term (current) drug therapy; Z91.030 Bee allergy status; Z91.040 Latex allergy status; Z88.2 Allergy status to sulfonamides; Z88.5 Allergy status to narcotic agent; Z92.21 Personal history of antineoplastic chemotherapy

== ENCOUNTER → 2023-11-07 | Outpatient (CLI) | payer BC ==
[~2023-11-07] MED LIST changes: +AMOX500C PO; +AUGM500T34 PO; +PANT40TA29 PO; +PRED10TA2 PO; +PROBCAP14 PO; +SUCR1TAB56 PO
== END ==
LOC: M PLAIMG 10:43
PROVIDERS: ATTEND Internal Medicine Medical Oncology
DX: K04.7 Periapical abscess without sinus (principal)

== ENCOUNTER 2023-11-21 13:16 | Day surgery (SDC) | payer BC ==
[~2023-11-21] VITALS: Ht 170.2 cm; Wt 75.9 kg
[~2023-11-21 13:16] MED LIST changes: +AUGM500T34 PO; +PANT40TA29 PO; +PREN200C PO; +PROBCAP14 PO; +SUCR1TAB56 PO
[2023-11-21] MEDS ORDERED: LR 1,000 ML IV SCH ×2 (14:25→15:50)
[2023-11-21] MEDS ORDERED: LIDOCAINE 2% W/ EPINEPHRINE 1.7 ML DENTAL INJ As Ordered ONE (15:10)
[2023-11-21] MEDS ORDERED: fentaNYL 100 MCG/2 ML INJECTION As Ordered ONE (15:11)
[2023-11-21] MEDS ORDERED: ONDANSETRON 4MG 2ML VIAL As Ordered ONE (15:11)
[2023-11-21] MEDS ORDERED: propofoL 200 MG/20 ML VIAL As Ordered ONE (15:11)
[2023-11-21] MEDS ORDERED: MIDAZOLAM INJ 2MG/2ML VIAL As Ordered ONE (15:11)
[2023-11-21] MEDS ORDERED: SUGAMMADEX SODIUM 500 MG/5 ML VIAL (BRIDION) As Ordered ONE (15:11)
[2023-11-21] MEDS ORDERED: ACETAMINOPHEN 1000MG 100ML IV BAG As Ordered ONE (15:11)
[2023-11-21] MEDS ORDERED: ROCURONIUM BROMIDE 50MG/5ML VIAL As Ordered ONE (15:11)
[2023-11-21] MEDS: AMPICILLIN SOD/SULBACTAM SOD 3 GM in D5W MINI-BAG PLUS 100 ML IV ONE (15:24)
[2023-11-21] MEDS ORDERED: fentaNYL 100 MCG/2 ML INJECTION IV PRN (15:50)
[2023-11-21] MEDS ORDERED: HYDROMORPHONE HCL 0.5 MG/ 0.5 ML SYRINGE IV PRN (15:50)
[2023-11-21] MEDS ORDERED: oxyCODONE 5MG TAB PO PRN (15:50)
[2023-11-21] MEDS ORDERED: ONDANSETRON 4MG 2ML VIAL IV PRN (15:50)
[2023-11-21 16:33] VITALS: BP 145/84; TEMP 97.5; O2SAT 100
[2023-11-21] MEDS: SODIUM CHLORIDE 0.9% INJ 10 ML SYR IV PRN (16:39)
[2023-11-24] MEDS ORDERED: PRED10TA2 (15:29)
[2023-11-24] MEDS ORDERED: PRED1TABL PO (15:46)
== END 2023-11-21 17:11 | disposition home or self-care (01) ==
LOC: M SDC 13:16
PROVIDERS: ATTEND Dentist
DX: K04.7 Periapical abscess without sinus (principal); C53.9 Malignant neoplasm of cervix uteri, unspecified; Z91.040 Latex allergy status; Z88.2 Allergy status to sulfonamides; Z88.5 Allergy status to narcotic agent; Z91.030 Bee allergy status; Z79.899 Other long term (current) drug therapy
CPT/HCPCS: 88300; D7210; J0131; J0295; J1100; J2250; J2405; J3010

== ENCOUNTER 2023-12-16 16:10 | Inpatient (IN) | payer BC ==
[~2023-12-16] VITALS: Ht 170.2 cm; Wt 75.2 kg
[~2023-12-16 16:10] MED LIST changes: +PRED10TA2; +PRED1TABL PO; -VITA500T16 PO; +VITA500T34 PO
[2023-12-16] MEDS ORDERED: CITR500T PO (16:46)
[2023-12-16] MEDS ORDERED: CHOL125C6 PO (16:46)
[2023-12-16] MEDS ORDERED: ESTR1CAP2 PO (16:46)
[2023-12-17] MEDS: NS 1,000 ML IV ONE (01:25)
[2023-12-17] MEDS ORDERED: ONDANSETRON 4MG 2ML VIAL IV ONE (01:25)
[2023-12-17] MEDS: HYDROMORPHONE HCL 0.5 MG/ 0.5 ML SYRINGE IV ONE ×2 (02:03→05:28)
[2023-12-17] MEDS: PROMETHAZINE 25MG/ML 1ML VIAL IV ONE (02:13)
[2023-12-17 02:19] LABS: BASO % 0.4 % (0.0-1.0); EOS # 0.1 10^3/uL (0.0-0.5); HEMATOCRIT 28.1 % (36.0-47.0); HEMOGLOBIN 9.2 g/dl (12.0-15.5); LYMPH # 0.5 10^3/uL (1.5-5.0); MEAN CORPUSCULAR HEMOGLOBIN 32.9 pg (27.0-33.0); MEAN CORPUSCULAR HGB CONC 32.7 g/dl (32.0-36.5); MEAN CORPUSCULAR VOLUME 100.4 fl (80.0-96.0); MONO # 0.7 10^3/uL (0.0-0.8); MONO % 8.9 % (2.0-8.0); NEUTROPHILS # 6.8 10^3/uL (1.5-8.5); NEUTROPHILS % 81.5 % (36.0-66.0); PLATELET COUNT, AUTOMATED 294 10^3/uL (150-450); WHITE BLOOD COUNT 8.4 10^3/uL (4.0-10.0)
[2023-12-17 02:44] LABS: ALBUMIN 3.5 G/DL (3.2-5.2); BILIRUBIN,DIRECT 0.3 MG/DL (<0.4); BILIRUBIN,TOTAL 0.7 MG/DL (0.3-1.2); CALCIUM LEVEL 8.2 MG/DL (8.5-10.1); CREATININE FOR GFR 2.06 MG/DL (0.55-1.30); GLOMERULAR FILTRATION RATE 27.4 (>58); POTASSIUM SERUM 4.3 MMOL/L (3.5-5.1); TOTAL PROTEIN 7.2 G/DL (5.7-8.2)
[2023-12-17] MEDS ORDERED: ACET-897 PO (05:21)
[2023-12-17] MEDS ORDERED: DOCU100C16 PO (05:21)
[2023-12-17] MEDS ORDERED: PREN1CAP8 PO (05:21)
[2023-12-17] MEDS ORDERED: LORA-622 PO (05:21)
[2023-12-17] MEDS ORDERED: HOME MED LIST COMPLETE! XX SCH (05:25)
[2023-12-17] MEDS: CIPROFLOXACIN 400 MG in IV 1 EA IV ONE (05:26)
[2023-12-17] MEDS: metroNIDAZOLE 500 MG in IV 1 EA IV ONE (06:09)
[2023-12-17] MEDS ORDERED: HYDROMORPHONE HCL 0.5 MG/ 0.5 ML SYRINGE IV PRN ×2 (06:35→11:40)
[2023-12-17] MEDS: HYDROMORPHONE HCL 0.5 MG/ 0.5 ML SYRINGE IV PRN ×2 (09:16→11:52)
[2023-12-17] MEDS: GABAPENTIN 100 MG CAP PO SCH (09:16)
[2023-12-17] MEDS: PROMETHAZINE 25MG/ML 1ML VIAL IV PRN (10:50)
[2023-12-17] MEDS: ACETAMINOPHEN TAB 650MG DOSE (2X325MG) PO PRN (11:34)
[2023-12-17] MEDS: NS 1,000 ML IV SCH (11:51)
[2023-12-17] MEDS: SENOKOT S TAB PO SCH (12:04)
[2023-12-17 12:50] VITALS: BP 149/95; TEMP 97.3; O2SAT 98
[2023-12-17] MEDS: HEPARIN SOD (PORCINE) 5000UNITS/ML 1ML VIAL/SYRINGE SC SCH (13:04)
[2023-12-17 14:00] VITALS: BP 151/97; TEMP 97.2; O2SAT 100
[2023-12-17] MEDS: metroNIDAZOLE 500 MG in IV 1 EA IV SCH (16:09)
[2023-12-17] MEDS: PANTOPRAZOLE 40MG VIAL IV SCH (16:09)
[2023-12-17] MEDS: CIPROFLOXACIN 400 MG in IV 1 EA IV SCH (17:48)
[2023-12-17 20:00] VITALS: BP 154/99; TEMP 97.2; O2SAT 97
[2023-12-17] MEDS: MIRALAX *UNIT DOSE* 17GM PACKET PO SCH (20:41)
[2023-12-18] VITALS (7 sets, daily range): BP systolic 142–164; BP diastolic 84–106; TEMP 97–97.5; O2SAT 98–100
[2023-12-18 07:48] LABS: BASO % 0.2 % (0.0-1.0); EOS % 0.8 % (0.0-3.0); LYMPH # 0.2 10^3/uL (1.5-5.0); LYMPH % 4.2 % (24.0-44.0); MEAN CORPUSCULAR HEMOGLOBIN 32.9 pg (27.0-33.0); MEAN CORPUSCULAR HGB CONC 32.7 g/dl (32.0-36.5); MEAN CORPUSCULAR VOLUME 100.5 fl (80.0-96.0); MONO # 0.4 10^3/uL (0.0-0.8); MONO % 7.9 % (2.0-8.0); NEUTROPHILS # 4.5 10^3/uL (1.5-8.5); NEUTROPHILS % 85.2 % (36.0-66.0); PLATELET COUNT, AUTOMATED 211 10^3/uL (150-450); RED BLOOD COUNT 2.16 10^6/uL (4.00-5.40); WHITE BLOOD COUNT 5.3 10^3/uL (4.0-10.0)
[2023-12-18 08:01] LABS: HEMATOCRIT 21.7 % (36.0-47.0); HEMOGLOBIN 7.1 g/dl (12.0-15.5)
[2023-12-18 08:07] LABS: CALCIUM LEVEL 7.2 MG/DL (8.5-10.1); CREATININE FOR GFR 1.65 MG/DL (0.55-1.30); GLOMERULAR FILTRATION RATE 35.3 (>58); POTASSIUM SERUM 3.9 MMOL/L (3.5-5.1)
[2023-12-18] MEDS: SODIUM CHLORIDE 0.9% INJ 10 ML SYR IV SCH (09:00)
[2023-12-18] MEDS: SUCRALFATE SUSP 1GM/10ML UD PO SCH (14:35)
[2023-12-18] MEDS: GOLYTELY SOLN 4000 ML BTL PO ONE (17:20)
[2023-12-18] MEDS: LIDOCAINE 5% (LIDODERM) PATCH TD SCH (17:26)
[2023-12-18] MEDS ORDERED: oxyCODONE 5MG TAB PO PRN (17:40)
[2023-12-18] MEDS: oxyCODONE 5MG TAB PO PRN (17:51)
[2023-12-18 23:02] LABS: HEMATOCRIT 25.4 % (36.0-47.0); HEMOGLOBIN 8.6 g/dl (12.0-15.5)
[2023-12-18] MEDS: PANTOPRAZOLE 40MG VIAL IV SCH (23:52)
[2023-12-19] VITALS (8 sets, daily range): BP systolic 143–162; BP diastolic 76–99; TEMP 97.2–97.7; O2SAT 90–100
[2023-12-19] MEDS: ACETAMINOPHEN *IV* 1,000 MG in IV 1 EA IV ONE (04:01)
[2023-12-19 06:06] LABS: BASO % 0.1 % (0.0-1.0); EOS % 0.5 % (0.0-3.0); HEMATOCRIT 25.3 % (36.0-47.0); HEMOGLOBIN 8.4 g/dl (12.0-15.5); LYMPH # 0.3 10^3/uL (1.5-5.0); MEAN CORPUSCULAR HEMOGLOBIN 31.3 pg (27.0-33.0); MEAN CORPUSCULAR HGB CONC 33.2 g/dl (32.0-36.5); MEAN CORPUSCULAR VOLUME 94.4 fl (80.0-96.0); MONO # 0.6 10^3/uL (0.0-0.8); MONO % 7.8 % (2.0-8.0); NEUTROPHILS # 6.3 10^3/uL (1.5-8.5); NEUTROPHILS % 86.5 % (36.0-66.0); PLATELET COUNT, AUTOMATED 232 10^3/uL (150-450); RED BLOOD COUNT 2.68 10^6/uL (4.00-5.40); WHITE BLOOD COUNT 7.3 10^3/uL (4.0-10.0)
[2023-12-19] MEDS: oxyCODONE 5MG TAB PO PRN ×2 (06:27→17:39)
[2023-12-19] MEDS: NS 1,000 ML IV SCH (06:33)
[2023-12-19 06:38] LABS: CALCIUM LEVEL 7.3 MG/DL (8.5-10.1); CREATININE FOR GFR 1.66 MG/DL (0.55-1.30); GLOMERULAR FILTRATION RATE 35.1 (>58); POTASSIUM SERUM 3.6 MMOL/L (3.5-5.1)
[2023-12-19] MEDS: FLEET ENEMA PR SCH (08:20)
[2023-12-19] MEDS ORDERED: propofoL 200 MG/20 ML VIAL As Ordered ONE (14:28)
[2023-12-19] MEDS ORDERED: MIDAZOLAM INJ 2MG/2ML VIAL As Ordered ONE (14:29)
[2023-12-19] MEDS ORDERED: ONDANSETRON 4MG 2ML VIAL As Ordered ONE (14:33)
[2023-12-19] MEDS ORDERED: LIDOCAINE 2% 100MG/5ML SDV (FOR ANES.) As Ordered ONE (14:33)
[2023-12-19] MEDS: MESALAMINE 1,000 MG SUPP PR SCH (21:00)
[2023-12-19] MEDS: METAMUCIL (PSYLLIUM) PACKET PO SCH (21:00)
[2023-12-19] MEDS: HYDROMORPHONE HCL 0.5 MG/ 0.5 ML SYRINGE IV PRN (23:13)
[2023-12-20] VITALS (9 sets, daily range): BP systolic 140–170; BP diastolic 83–109; TEMP 97.2–97.9; O2SAT 92–100
[2023-12-20 05:59] LABS: BASO % 0.1 % (0.0-1.0); EOS % 0.4 % (0.0-3.0); HEMATOCRIT 23.6 % (36.0-47.0); HEMOGLOBIN 7.7 g/dl (12.0-15.5); LYMPH # 0.3 10^3/uL (1.5-5.0); LYMPH % 3.9 % (24.0-44.0); MEAN CORPUSCULAR HGB CONC 32.6 g/dl (32.0-36.5); MEAN CORPUSCULAR VOLUME 95.2 fl (80.0-96.0); MONO # 0.6 10^3/uL (0.0-0.8); MONO % 8.9 % (2.0-8.0); NEUTROPHILS # 5.8 10^3/uL (1.5-8.5); NEUTROPHILS % 85.5 % (36.0-66.0); PLATELET COUNT, AUTOMATED 190 10^3/uL (150-450); RED BLOOD COUNT 2.48 10^6/uL (4.00-5.40); WHITE BLOOD COUNT 6.8 10^3/uL (4.0-10.0)
[2023-12-20 06:31] LABS: CALCIUM LEVEL 6.7 MG/DL (8.5-10.1); CREATININE FOR GFR 1.61 MG/DL (0.55-1.30); GLOMERULAR FILTRATION RATE 36.4 (>58); POTASSIUM SERUM 3.3 MMOL/L (3.5-5.1)
[2023-12-20 08:01] LABS: PHOSPHORUS LEVEL 2.8 MG/DL (2.5-4.9)
[2023-12-20] MEDS: CALCIUM GLUCONATE 1,000 MG in D5W MINI-BAG PLUS 100 ML IV SCH (09:35)
[2023-12-20] MEDS: NS 1,000 ML IV SCH (10:00)
[2023-12-20] MEDS: SENOKOT S TAB PO SCH (10:48)
[2023-12-20] MEDS: oxyCODONE 10 MG CR TAB PO SCH (12:49)
[2023-12-20] MEDS: MAG SULF 1GM/100ML (MAG RUN) 1 GM in IV 1 EA IV SCH (12:49)
[2023-12-20] MEDS: KCL 10MEQ/100ML SWI (KRUN) 10 MEQ in IV 1 EA IV SCH (12:56)
[2023-12-20] MEDS ORDERED: fentaNYL 100 MCG/2 ML INJECTION As Ordered ONE (16:15)
[2023-12-20] MEDS ORDERED: ETOMIDATE INJ 20MG/10ML VIAL As Ordered ONE (16:15)
[2023-12-20] MEDS ORDERED: MAGNESIUM SULFATE 1GM/100ML D5W BAG (10MG/ML) As Ordered ONE (17:04)
[2023-12-20] MEDS: MESALAMINE 400 MG CAPSULE DELAYED RELEASE (DELZICOL) PO SCH (17:57)
[2023-12-20] MEDS: GABAPENTIN 100 MG CAP PO SCH (17:58)
[2023-12-20 18:02] LABS: HEMATOCRIT 24.6 % (36.0-47.0); HEMOGLOBIN 8.1 g/dl (12.0-15.5)
[2023-12-20] MEDS: METOPROLOL TART 25 MG TABLET PO ONE (18:58)
[2023-12-20] MEDS: oxyCODONE 15MG CR TAB PO SCH (20:35)
[2023-12-21] VITALS (10 sets, daily range): BP systolic 128–165; BP diastolic 64–105; TEMP 97–97.7; O2SAT 95–100
[2023-12-21 06:35] LABS: EOS % 0.1 % (0.0-3.0); HEMATOCRIT 22.8 % (36.0-47.0); HEMOGLOBIN 7.3 g/dl (12.0-15.5); LYMPH # 0.3 10^3/uL (1.5-5.0); LYMPH % 3.7 % (24.0-44.0); MEAN CORPUSCULAR HEMOGLOBIN 30.9 pg (27.0-33.0); MEAN CORPUSCULAR VOLUME 96.6 fl (80.0-96.0); MONO # 0.8 10^3/uL (0.0-0.8); MONO % 8.7 % (2.0-8.0); NEUTROPHILS # 7.5 10^3/uL (1.5-8.5); NEUTROPHILS % 86.8 % (36.0-66.0); PLATELET COUNT, AUTOMATED 215 10^3/uL (150-450); RED BLOOD COUNT 2.36 10^6/uL (4.00-5.40); WHITE BLOOD COUNT 8.7 10^3/uL (4.0-10.0)
[2023-12-21 07:01] LABS: CALCIUM LEVEL 7.1 MG/DL (8.5-10.1); CREATININE FOR GFR 1.79 MG/DL (0.55-1.30); GLOMERULAR FILTRATION RATE 32.2 (>58); MAGNESIUM LEVEL 1.9 MG/DL (1.8-2.4); POTASSIUM SERUM 4.2 MMOL/L (3.5-5.1)
[2023-12-21] MEDS: amLODIPine 5 MG TAB PO SCH (13:02)
[2023-12-21] MEDS: diphenhydrAMINE 50MG/ML VIAL IV PRN (13:45)
[2023-12-21] MEDS: ACETAMINOPHEN TAB 650MG DOSE (2X325MG) PO PRN (13:45)
[2023-12-22] MEDS: HYDROMORPHONE HCL 0.5 MG/ 0.5 ML SYRINGE IV PRN (00:34)
[2023-12-22 05:27] VITALS: BP_SYST 140; BP_SYST 160; BP_DIAS 64; BP_DIAS 90; TEMP 97.2; TEMP 97.3; O2SAT 94; O2SAT 96
[2023-12-22 06:07] LABS: BASO % 0.2 % (0.0-1.0); EOS # 0.1 10^3/uL (0.0-0.5); EOS % 0.8 % (0.0-3.0); HEMATOCRIT 26.8 % (36.0-47.0); HEMOGLOBIN 8.8 g/dl (12.0-15.5); LYMPH # 0.3 10^3/uL (1.5-5.0); LYMPH % 3.4 % (24.0-44.0); MEAN CORPUSCULAR HEMOGLOBIN 31.1 pg (27.0-33.0); MEAN CORPUSCULAR HGB CONC 32.8 g/dl (32.0-36.5); MEAN CORPUSCULAR VOLUME 94.7 fl (80.0-96.0); MONO # 0.9 10^3/uL (0.0-0.8); NEUTROPHILS # 8.5 10^3/uL (1.5-8.5); NEUTROPHILS % 85.8 % (36.0-66.0); PLATELET COUNT, AUTOMATED 215 10^3/uL (150-450); RED BLOOD COUNT 2.83 10^6/uL (4.00-5.40); WHITE BLOOD COUNT 9.9 10^3/uL (4.0-10.0)
[2023-12-22 06:41] LABS: CALCIUM LEVEL 6.9 MG/DL (8.5-10.1); CREATININE FOR GFR 1.71 MG/DL (0.55-1.30); GLOMERULAR FILTRATION RATE 33.9 (>58); MAGNESIUM LEVEL 1.4 MG/DL (1.8-2.4); POTASSIUM SERUM 3.7 MMOL/L (3.5-5.1)
[2023-12-22] MEDS: MAG SULF 1GM/100ML (MAG RUN) 1 GM in IV 1 EA IV SCH (08:30)
[2023-12-22] MEDS: ALPRAZolam 0.25 MG TAB PO PRN (10:43)
[2023-12-22] MEDS: LACTULOSE 20GM/30ML SYRUP UDC PO SCH (10:44)
[2023-12-22 11:09] LABS: ALBUMIN 2.3 G/DL (3.2-5.2)
[2023-12-22 13:33] VITALS: BP 138/66
[2023-12-22 14:00] VITALS: BP 162/88; TEMP 97.9; O2SAT 89
[2023-12-22] MEDS: KCL 10MEQ/100ML SWI (KRUN) 10 MEQ in IV 1 EA IV SCH (14:01)
[2023-12-22] MEDS: LORazepam 2 MG/ML 1ML VIAL IV ONE (15:58)
[2023-12-22] MEDS ORDERED: KCL 10MEQ IN STERILE WATER 100ML As Ordered ONE (16:02)
[2023-12-22] MEDS: INSULIN LISPRO (NovoLOG) PER UNIT SC SCH (18:00)
[2023-12-22] MEDS: SODIUM CHLORIDE 0.9% INJ 10 ML SYR IV SCH (20:04)
[2023-12-22] MEDS: FAT EMULSION IV 250 ML IV ONE (20:04)
[2023-12-22] MEDS: AMINO AC/ELECTROLYTE/DEX/CALC 2,000 ML IV SCH (20:05)
[2023-12-22] MEDS: DOCUSATE SODIUM 100MG CAPSULE PO SCH (21:57)
[2023-12-22] MEDS: SENNA 8.6 MG TAB (SENOKOT) PO SCH (21:57)
[2023-12-22 22:35] VITALS: BP 144/66; TEMP 97.2; O2SAT 93
[2023-12-23] MEDS: SODIUM CHLORIDE 0.9% INJ 10 ML SYR IV PRN (00:07)
[2023-12-23 00:32] LABS: BASO % 0.2 % (0.0-1.0); EOS % 0.3 % (0.0-3.0); HEMATOCRIT 27.6 % (36.0-47.0); HEMOGLOBIN 9.2 g/dl (12.0-15.5); LYMPH # 0.4 10^3/uL (1.5-5.0); LYMPH % 3.1 % (24.0-44.0); MEAN CORPUSCULAR HEMOGLOBIN 31.4 pg (27.0-33.0); MEAN CORPUSCULAR HGB CONC 33.3 g/dl (32.0-36.5); MEAN CORPUSCULAR VOLUME 94.2 fl (80.0-96.0); MONO # 1.1 10^3/uL (0.0-0.8); MONO % 9.3 % (2.0-8.0); NEUTROPHILS # 10.1 10^3/uL (1.5-8.5); NEUTROPHILS % 86.2 % (36.0-66.0); PLATELET COUNT, AUTOMATED 219 10^3/uL (150-450); RED BLOOD COUNT 2.93 10^6/uL (4.00-5.40); WHITE BLOOD COUNT 11.8 10^3/uL (4.0-10.0)
[2023-12-23 00:53] LABS: ERYTHROCYTE SEDIMENTATION RATE 47 mm/hr (0-20)
[2023-12-23 00:59] LABS: C REACTIVE PROTEIN QUANTITATIV 14.9 MG/DL (<1.0)
[2023-12-23 01:12] LABS: PROCALCITONIN 0.5 ng/ml
[2023-12-23 01:28] LABS: ALBUMIN 2.5 G/DL (3.2-5.2); BILIRUBIN,TOTAL 0.9 MG/DL (0.3-1.2); CALCIUM LEVEL 7.8 MG/DL (8.5-10.1); CREATININE FOR GFR 1.69 MG/DL (0.55-1.30); GLOMERULAR FILTRATION RATE 34.4 (>58); MAGNESIUM LEVEL 1.8 MG/DL (1.8-2.4); POTASSIUM SERUM 3.3 MMOL/L (3.5-5.1); TOTAL PROTEIN 6.1 G/DL (5.7-8.2)
[2023-12-23] MEDS: KCL 10MEQ/100ML SWI (KRUN) 10 MEQ in IV 1 EA IV ONE (03:12)
[2023-12-23 06:15] VITALS: BP 142/82; TEMP 97.2; O2SAT 96
[2023-12-23 06:38] LABS: BASO % 0.2 % (0.0-1.0); EOS % 0.2 % (0.0-3.0); HEMATOCRIT 26.6 % (36.0-47.0); HEMOGLOBIN 8.8 g/dl (12.0-15.5); LYMPH # 0.3 10^3/uL (1.5-5.0); LYMPH % 2.8 % (24.0-44.0); MEAN CORPUSCULAR HEMOGLOBIN 30.7 pg (27.0-33.0); MEAN CORPUSCULAR HGB CONC 33.1 g/dl (32.0-36.5); MEAN CORPUSCULAR VOLUME 92.7 fl (80.0-96.0); MONO % 8.6 % (2.0-8.0); NEUTROPHILS # 10.5 10^3/uL (1.5-8.5); NEUTROPHILS % 87.3 % (36.0-66.0); PLATELET COUNT, AUTOMATED 232 10^3/uL (150-450); RED BLOOD COUNT 2.87 10^6/uL (4.00-5.40)
[2023-12-23 07:19] LABS: CALCIUM LEVEL 7.1 MG/DL (8.5-10.1); CREATININE FOR GFR 1.56 MG/DL (0.55-1.30); GLOMERULAR FILTRATION RATE 37.7 (>58); MAGNESIUM LEVEL 1.8 MG/DL (1.8-2.4); PHOSPHORUS LEVEL 2.6 MG/DL (2.5-4.9); POTASSIUM SERUM 3.6 MMOL/L (3.5-5.1)
[2023-12-23] MEDS ORDERED: PILL CUTTER 1 EACH XX PRN (11:15)
[2023-12-23] MEDS: PIPERACILLIN/TAZOBACTAM SOD 4.5 GM in D5W MINI-BAG PLUS 50 ML IV SCH (11:23)
[2023-12-23] MEDS: NS 1,000 ML IV SCH (11:23)
[2023-12-23 12:48] LABS: PROCALCITONIN 0.43 ng/ml
[2023-12-23 14:00] VITALS: BP 130/90; TEMP 97.3; O2SAT 94
[2023-12-23] MEDS: SIMETHICONE 80MG CHEW TAB PO SCH (14:17)
[2023-12-23] MEDS: dexAMETHasone 20MG/5ML VIAL IV ONE (15:03)
[2023-12-23] MEDS: INSULIN LISPRO (NovoLOG) PER UNIT SC SCH (17:31)
[2023-12-23] MEDS: FAT EMULSION IV 250 ML IV ONE (18:08)
[2023-12-23] MEDS: AMINO AC/ELECTROLYTE/DEX/CALC 2,000 ML IV SCH (18:08)
[2023-12-23 21:30] VITALS: BP 128/88; TEMP 97.7; O2SAT 96
[2023-12-24 06:23] LABS: BASO % 0.1 % (0.0-1.0); HEMATOCRIT 24.6 % (36.0-47.0); LYMPH # 0.3 10^3/uL (1.5-5.0); LYMPH % 2.8 % (24.0-44.0); MEAN CORPUSCULAR HEMOGLOBIN 30.8 pg (27.0-33.0); MEAN CORPUSCULAR HGB CONC 32.5 g/dl (32.0-36.5); MEAN CORPUSCULAR VOLUME 94.6 fl (80.0-96.0); MONO # 0.3 10^3/uL (0.0-0.8); MONO % 3.1 % (2.0-8.0); NEUTROPHILS # 9.2 10^3/uL (1.5-8.5); PLATELET COUNT, AUTOMATED 201 10^3/uL (150-450); WHITE BLOOD COUNT 9.9 10^3/uL (4.0-10.0)
[2023-12-24 07:54] LABS: C REACTIVE PROTEIN QUANTITATIV 11.5 MG/DL (<1.0); CALCIUM LEVEL 7.8 MG/DL (8.5-10.1); CREATININE FOR GFR 1.38 MG/DL (0.55-1.30); GLOMERULAR FILTRATION RATE 43.4 (>58); MAGNESIUM LEVEL 1.7 MG/DL (1.8-2.4); POTASSIUM SERUM 4.2 MMOL/L (3.5-5.1)
[2023-12-24] MEDS: PIPERACILLIN/TAZOBACTAM SOD 4.5 GM in D5W MINI-BAG PLUS 50 ML IV SCH (10:11)
[2023-12-24] MEDS: EMLA CREAM 5GM TUBE (LIDOCAINE/PRILOCAINE) TOP ONE (12:45)
[2023-12-24 14:00] VITALS: BP 142/78; TEMP 97; O2SAT 96
[2023-12-24] MEDS: INSULIN LISPRO (NovoLOG) PER UNIT SC SCH (17:28)
[2023-12-24] MEDS: MULTIVITAMIN -ADULT INJECTION 10 ML, ZINC/COPPER/MANGANESE/SELENIUM 1 ML in AMINO AC/EL... IV SCH (18:10)
[2023-12-24] MEDS: FAT EMULSION IV 250 ML IV ONE (18:10)
[2023-12-24 20:00] VITALS: BP 144/90; TEMP 97.2; O2SAT 95
[2023-12-24] MEDS: oxyCODONE 15MG CR TAB PO SCH (20:52)
[2023-12-24 23:19] VITALS: O2SAT 96
[2023-12-25] VITALS (18 sets, daily range): BP systolic 146–162; BP diastolic 86–98; TEMP 97–97.9; O2SAT 95–100
[2023-12-25 06:07] LABS: BASO % 0.1 % (0.0-1.0); HEMATOCRIT 24.1 % (36.0-47.0); HEMOGLOBIN 7.8 g/dl (12.0-15.5); LYMPH # 0.4 10^3/uL (1.5-5.0); LYMPH % 3.3 % (24.0-44.0); MEAN CORPUSCULAR HEMOGLOBIN 31.3 pg (27.0-33.0); MEAN CORPUSCULAR HGB CONC 32.4 g/dl (32.0-36.5); MEAN CORPUSCULAR VOLUME 96.8 fl (80.0-96.0); MONO # 0.6 10^3/uL (0.0-0.8); MONO % 4.6 % (2.0-8.0); NEUTROPHILS # 11.3 10^3/uL (1.5-8.5); NEUTROPHILS % 90.6 % (36.0-66.0); PLATELET COUNT, AUTOMATED 234 10^3/uL (150-450); RED BLOOD COUNT 2.49 10^6/uL (4.00-5.40); WHITE BLOOD COUNT 12.5 10^3/uL (4.0-10.0)
[2023-12-25 06:37] LABS: CALCIUM LEVEL 7.9 MG/DL (8.5-10.1); CREATININE FOR GFR 1.54 MG/DL (0.55-1.30); GLOMERULAR FILTRATION RATE 38.3 (>58); MAGNESIUM LEVEL 1.5 MG/DL (1.8-2.4); POTASSIUM SERUM 4.1 MMOL/L (3.5-5.1)
[2023-12-25] MEDS: MAG SULF 1GM/100ML (MAG RUN) 1 GM in IV 1 EA IV SCH (10:04)
[2023-12-25] MEDS: oxyCODONE 20MG CR TAB PO SCH (12:50)
[2023-12-25] MEDS: INSULIN LISPRO (NovoLOG) PER UNIT SC SCH (17:01)
[2023-12-25] MEDS: FAT EMULSION IV 250 ML IV ONE (17:47)
[2023-12-25] MEDS: AMINO AC/ELECTROLYTE/DEX/CALC 2,000 ML IV SCH (17:47)
[2023-12-26] VITALS (12 sets, daily range): BP systolic 115–152; BP diastolic 69–85; TEMP 97–97.7; O2SAT 95–100
[2023-12-26] MEDS: traMADol 50 MG TAB PO ONE (02:35)
[2023-12-26] MEDS: oxyCODONE 5MG TAB PO ONE (06:14)
[2023-12-26 06:36] LABS: BASO % 0.3 % (0.0-1.0); EOS % 0.1 % (0.0-3.0); HEMATOCRIT 27.2 % (36.0-47.0); HEMOGLOBIN 8.8 g/dl (12.0-15.5); LYMPH # 0.5 10^3/uL (1.5-5.0); LYMPH % 3.2 % (24.0-44.0); MEAN CORPUSCULAR HGB CONC 32.4 g/dl (32.0-36.5); MEAN CORPUSCULAR VOLUME 95.8 fl (80.0-96.0); MONO % 6.1 % (2.0-8.0); NEUTROPHILS # 13.4 10^3/uL (1.5-8.5); NEUTROPHILS % 86.3 % (36.0-66.0); PLATELET COUNT, AUTOMATED 293 10^3/uL (150-450); RED BLOOD COUNT 2.84 10^6/uL (4.00-5.40); WHITE BLOOD COUNT 15.5 10^3/uL (4.0-10.0)
[2023-12-26 06:55] LABS: C REACTIVE PROTEIN QUANTITATIV 2.7 MG/DL (<1.0)
[2023-12-26 06:57] LABS: CALCIUM LEVEL 8.5 MG/DL (8.5-10.1); CREATININE FOR GFR 1.63 MG/DL (0.55-1.30); GLOMERULAR FILTRATION RATE 35.8 (>58); MAGNESIUM LEVEL 2.1 MG/DL (1.8-2.4); POTASSIUM SERUM 4.1 MMOL/L (3.5-5.1)
[2023-12-26] MEDS: LORazepam 0.5 MG TAB PO ONE (09:24)
[2023-12-26] MEDS: LIDOCAINE 4% TOPICAL SOLN 50 ML BTL TOP ONE (11:24)
[2023-12-26] MEDS: METHYLNALTREXONE BROMIDE 12MG/0.6ML VIAL (RELISTOR) SC ONE (12:19)
[2023-12-26] MEDS: METOCLOPRAMIDE 10MG TAB PO ONE (12:22)
[2023-12-26] MEDS: MESALAMINE 1,000 MG SUPP PR SCH (14:38)
[2023-12-26] MEDS ORDERED: METOCLOPRAMIDE 10MG TAB PO PRN (16:50)
[2023-12-26] MEDS: INSULIN LISPRO (NovoLOG) PER UNIT SC SCH (18:00)
[2023-12-26] MEDS: METOCLOPRAMIDE 10MG TAB PO SCH (19:01)
[2023-12-26] MEDS: FAT EMULSION IV 250 ML IV ONE (19:02)
[2023-12-26] MEDS: MULTIVITAMIN -ADULT INJECTION 10 ML, ZINC/COPPER/MANGANESE/SELENIUM 1 ML in AMINO AC/EL... IV SCH (19:02)
[2023-12-27 03:51] VITALS: O2SAT 97
[2023-12-27 05:45] VITALS: TEMP 95.6; O2SAT 98
[2023-12-27] MEDS: **hydrALAZINE** 10 MG TAB PO PRN (06:18)
[2023-12-27 06:44] LABS: HEMATOCRIT 24.9 % (36.0-47.0); HEMOGLOBIN 8.2 g/dl (12.0-15.5); MEAN CORPUSCULAR HEMOGLOBIN 31.4 pg (27.0-33.0); MEAN CORPUSCULAR HGB CONC 32.9 g/dl (32.0-36.5); MEAN CORPUSCULAR VOLUME 95.4 fl (80.0-96.0); PLATELET COUNT, AUTOMATED 226 10^3/uL (150-450); RED BLOOD COUNT 2.61 10^6/uL (4.00-5.40); WHITE BLOOD COUNT 11.7 10^3/uL (4.0-10.0)
[2023-12-27 07:14] LABS: CALCIUM LEVEL 8.4 MG/DL (8.5-10.1); CREATININE FOR GFR 1.61 MG/DL (0.55-1.30); GLOMERULAR FILTRATION RATE 36.4 (>58); MAGNESIUM LEVEL 1.7 MG/DL (1.8-2.4); POTASSIUM SERUM 3.4 MMOL/L (3.5-5.1)
[2023-12-27 07:20] LABS: EOSINOPHILS 1 % (0-3); LYMPHOCYTES 3 % (16-44); METAMYELOCYTES 3 % (0-0); MONOCYTES 6 % (0-5); MYELOCYTES 1 % (0-0); NEUTROPHILS 86 % (28-66)
[2023-12-27 07:21] LABS: ANISOCYTOSIS 2+; POLYCHROMASIA 1+
[2023-12-27 07:22] LABS: SCHISTOCYTES 1+; TEAR DROP CELLS 1+
[2023-12-27 07:24] LABS: POIKILOCYTOSIS 1+
[2023-12-27 07:25] LABS: PLATELET ESTIMATE NORMAL (NORMAL)
[2023-12-27] MEDS: MAG SULF 1GM/100ML (MAG RUN) 1 GM in IV 1 EA IV SCH (08:00)
[2023-12-27] MEDS: KCL 10MEQ/100ML SWI (KRUN) 10 MEQ in IV 1 EA IV SCH (10:15)
[2023-12-27] MEDS: SODIUM CHLORIDE 0.9% INJ 10 ML SYR IV PRN (13:41)
[2023-12-27 14:00] VITALS: BP 120/75; TEMP 97.2; O2SAT 98
[2023-12-27] MEDS: INSULIN LISPRO (NovoLOG) PER UNIT SC SCH (18:00)
[2023-12-27] MEDS: AMINO AC/ELECTROLYTE/DEX/CALC 2,000 ML IV SCH (18:52)
[2023-12-27] MEDS: FAT EMULSION IV 250 ML IV ONE (18:53)
[2023-12-27 19:44] VITALS: TEMP 97.2; O2SAT 99
[2023-12-27 23:40] VITALS: BP 174/94
[2023-12-28] MEDS: amLODIPine 5 MG TAB PO ONE (00:26)
[2023-12-28 02:59] VITALS: BP 162/96
[2023-12-28 04:38] VITALS: O2SAT 96
[2023-12-28 06:25] VITALS: TEMP 97.1; O2SAT 97
[2023-12-28 06:55] LABS: BASO % 0.2 % (0.0-1.0); EOS % 0.1 % (0.0-3.0); HEMATOCRIT 25.4 % (36.0-47.0); HEMOGLOBIN 8.3 g/dl (12.0-15.5); LYMPH # 0.5 10^3/uL (1.5-5.0); LYMPH % 3.4 % (24.0-44.0); MEAN CORPUSCULAR HGB CONC 32.7 g/dl (32.0-36.5); MEAN CORPUSCULAR VOLUME 94.8 fl (80.0-96.0); MONO # 0.9 10^3/uL (0.0-0.8); MONO % 6.8 % (2.0-8.0); NEUTROPHILS % 81.7 % (36.0-66.0); PLATELET COUNT, AUTOMATED 212 10^3/uL (150-450); RED BLOOD COUNT 2.68 10^6/uL (4.00-5.40); WHITE BLOOD COUNT 13.4 10^3/uL (4.0-10.0)
[2023-12-28 07:24] LABS: CALCIUM LEVEL 8.2 MG/DL (8.5-10.1); CREATININE FOR GFR 1.53 MG/DL (0.55-1.30); GLOMERULAR FILTRATION RATE 38.6 (>58); MAGNESIUM LEVEL 1.8 MG/DL (1.8-2.4); POTASSIUM SERUM 3.5 MMOL/L (3.5-5.1)
[2023-12-28] MEDS: MIRALAX *UNIT DOSE* 17GM PACKET NG SCH (10:05)
[2023-12-28] MEDS: DOCUSATE SODIUM 100MG CAPSULE PO SCH (10:05)
[2023-12-28 14:00] VITALS: BP 125/70; TEMP 97.3; O2SAT 98
[2023-12-28] MEDS: FAT EMULSION IV 250 ML IV ONE (17:37)
[2023-12-28] MEDS: AMINO AC/ELECTROLYTE/DEX/CALC 2,000 ML IV SCH (17:37)
[2023-12-28] MEDS: INSULIN LISPRO (NovoLOG) PER UNIT SC SCH (18:00)
[2023-12-28] MEDS: DOCUSATE SOD LIQ 100MG/10ML UDC PO SCH (21:00)
[2023-12-28 21:36] VITALS: BP 142/80; TEMP 97.3; O2SAT 96
[2023-12-29] MEDS: DOCUSATE SODIUM 100MG CAPSULE PO SCH (00:22)
[2023-12-29 03:58] VITALS: O2SAT 96
[2023-12-29 04:56] VITALS: BP 144/77; TEMP 97.2; O2SAT 98
[2023-12-29 06:39] LABS: BASO # 0.1 10^3/uL (0.0-0.2); BASO % 0.6 % (0.0-1.0); EOS # 0.1 10^3/uL (0.0-0.5); EOS % 0.6 % (0.0-3.0); HEMATOCRIT 26.2 % (36.0-47.0); HEMOGLOBIN 8.6 g/dl (12.0-15.5); LYMPH # 0.5 10^3/uL (1.5-5.0); LYMPH % 3.8 % (24.0-44.0); MEAN CORPUSCULAR HEMOGLOBIN 30.7 pg (27.0-33.0); MEAN CORPUSCULAR HGB CONC 32.8 g/dl (32.0-36.5); MEAN CORPUSCULAR VOLUME 93.6 fl (80.0-96.0); MONO % 7.8 % (2.0-8.0); NEUTROPHILS # 9.8 10^3/uL (1.5-8.5); NEUTROPHILS % 77.4 % (36.0-66.0); PLATELET COUNT, AUTOMATED 190 10^3/uL (150-450); WHITE BLOOD COUNT 12.7 10^3/uL (4.0-10.0)
[2023-12-29 07:05] LABS: C REACTIVE PROTEIN QUANTITATIV 0.6 MG/DL (<1.0)
[2023-12-29 07:07] LABS: CREATININE FOR GFR 1.58 MG/DL (0.55-1.30); GLOMERULAR FILTRATION RATE 37.2 (>58); MAGNESIUM LEVEL 1.7 MG/DL (1.8-2.4); POTASSIUM SERUM 3.1 MMOL/L (3.5-5.1)
[2023-12-29] MEDS: MIRALAX *UNIT DOSE* 17GM PACKET PO SCH (09:00)
[2023-12-29] MEDS ORDERED: DOCUSATE SODIUM 100MG CAPSULE PO SCH (09:00)
[2023-12-29] MEDS: MAG SULF 1GM/100ML (MAG RUN) 1 GM in IV 1 EA IV ONE (09:03)
[2023-12-29] MEDS: KCL 10MEQ/100ML SWI (KRUN) 10 MEQ in IV 1 EA IV SCH ×2 (09:05→16:49)
[2023-12-29 14:00] VITALS: BP 154/99; TEMP 97.3; O2SAT 96
[2023-12-29] MEDS: FAT EMULSION IV 250 ML IV ONE (18:00)
[2023-12-29] MEDS: MULTIVITAMIN -ADULT INJECTION 10 ML, ZINC/COPPER/MANGANESE/SELENIUM 1 ML, POTASSIUM CHL... IV SCH (18:00)
[2023-12-29] MEDS: INSULIN LISPRO (NovoLOG) PER UNIT SC SCH (18:00)
[2023-12-29 20:32] VITALS: BP 172/84; TEMP 97; O2SAT 99
[2023-12-30 04:50] VITALS: BP 137/74; TEMP 97; O2SAT 97
[2023-12-30 05:20] LABS: BASO % 0.3 % (0.0-1.0); EOS # 0.2 10^3/uL (0.0-0.5); EOS % 1.7 % (0.0-3.0); HEMATOCRIT 27.7 % (36.0-47.0); HEMOGLOBIN 8.9 g/dl (12.0-15.5); LYMPH # 0.5 10^3/uL (1.5-5.0); LYMPH % 4.6 % (24.0-44.0); MEAN CORPUSCULAR HEMOGLOBIN 30.4 pg (27.0-33.0); MEAN CORPUSCULAR HGB CONC 32.1 g/dl (32.0-36.5); MEAN CORPUSCULAR VOLUME 94.5 fl (80.0-96.0); MONO # 1.1 10^3/uL (0.0-0.8); MONO % 9.6 % (2.0-8.0); NEUTROPHILS # 8.3 10^3/uL (1.5-8.5); NEUTROPHILS % 72.6 % (36.0-66.0); PLATELET COUNT, AUTOMATED 178 10^3/uL (150-450); RED BLOOD COUNT 2.93 10^6/uL (4.00-5.40); WHITE BLOOD COUNT 11.5 10^3/uL (4.0-10.0)
[2023-12-30 05:44] LABS: CALCIUM LEVEL 8.4 MG/DL (8.5-10.1); CREATININE FOR GFR 1.6 MG/DL (0.55-1.30); GLOMERULAR FILTRATION RATE 36.6 (>58); MAGNESIUM LEVEL 1.9 MG/DL (1.8-2.4); POTASSIUM SERUM 3.1 MMOL/L (3.5-5.1)
[2023-12-30] MEDS: MAG SULF 1GM/100ML (MAG RUN) 1 GM in IV 1 EA IV ONE (06:38)
[2023-12-30] MEDS: KCL 10MEQ/100ML SWI (KRUN) 10 MEQ in IV 1 EA IV SCH (08:30)
[2023-12-30 11:40] VITALS: BP 146/84
[2023-12-30 14:00] VITALS: BP 162/80; TEMP 97.3; O2SAT 96
[2023-12-30] MEDS: INSULIN LISPRO (NovoLOG) PER UNIT SC SCH (17:35)
[2023-12-30] MEDS: FAT EMULSION IV 250 ML IV ONE (18:51)
[2023-12-30] MEDS: POTASSIUM CHLORIDE INJ 66.7 MEQ in AMINO AC/ELECTROLYTE/DEX/CALC 2,000 ML IV SCH (18:51)
[2023-12-30 20:06] VITALS: BP 148/78; TEMP 97.2; O2SAT 97
[2023-12-30] MEDS: MESALAMINE 1,000 MG SUPP PR SCH (21:17)
[2023-12-31 05:09] VITALS: BP 134/76; TEMP 97.3; O2SAT 96
[2023-12-31 05:41] LABS: MEAN CORPUSCULAR HEMOGLOBIN 31.7 pg (27.0-33.0); MEAN CORPUSCULAR HGB CONC 33.3 g/dl (32.0-36.5); MEAN CORPUSCULAR VOLUME 95.1 fl (80.0-96.0); PLATELET COUNT, AUTOMATED 159 10^3/uL (150-450); RED BLOOD COUNT 2.84 10^6/uL (4.00-5.40); WHITE BLOOD COUNT 10.7 10^3/uL (4.0-10.0)
[2023-12-31 06:01] LABS: C REACTIVE PROTEIN QUANTITATIV 1.7 MG/DL (<1.0)
[2023-12-31 06:04] LABS: CALCIUM LEVEL 8.5 MG/DL (8.5-10.1); CREATININE FOR GFR 1.61 MG/DL (0.55-1.30); GLOMERULAR FILTRATION RATE 36.4 (>58); POTASSIUM SERUM 3.8 MMOL/L (3.5-5.1)
[2023-12-31 06:56] LABS: BASOPHILS 1 % (0-1); LYMPHOCYTES 9 % (16-44); METAMYELOCYTES 2 % (0-0); MONOCYTES 1 % (0-5); MYELOCYTES 1 % (0-0); NEUTROPHILS 83 % (28-66)
[2023-12-31 06:57] LABS: PLATELET ESTIMATE NORMAL (NORMAL)
[2023-12-31] MEDS: EMLA CREAM 5GM TUBE (LIDOCAINE/PRILOCAINE) TOP ONE (13:11)
[2023-12-31 14:00] VITALS: TEMP 97.3; O2SAT 100
[2023-12-31 14:25] VITALS: BP 134/86
[2023-12-31] MEDS: INSULIN LISPRO (NovoLOG) PER UNIT SC SCH (17:33)
[2023-12-31] MEDS: FAT EMULSION IV 250 ML IV ONE (17:43)
[2023-12-31] MEDS: MULTIVITAMIN -ADULT INJECTION 10 ML, ZINC/COPPER/MANGANESE/SELENIUM 1 ML, POTASSIUM CHL... IV SCH (17:43)
[2023-12-31 21:00] VITALS: BP 128/66; TEMP 97; O2SAT 100
[2024-01-01 05:32] LABS: BASO # 0.1 10^3/uL (0.0-0.2); BASO % 0.5 % (0.0-1.0); EOS # 0.2 10^3/uL (0.0-0.5); EOS % 2.1 % (0.0-3.0); HEMATOCRIT 29.3 % (36.0-47.0); HEMOGLOBIN 9.5 g/dl (12.0-15.5); LYMPH # 0.4 10^3/uL (1.5-5.0); LYMPH % 4.1 % (24.0-44.0); MEAN CORPUSCULAR HEMOGLOBIN 31.3 pg (27.0-33.0); MEAN CORPUSCULAR HGB CONC 32.4 g/dl (32.0-36.5); MEAN CORPUSCULAR VOLUME 96.4 fl (80.0-96.0); MONO % 9.8 % (2.0-8.0); NEUTROPHILS # 7.6 10^3/uL (1.5-8.5); NEUTROPHILS % 73.5 % (36.0-66.0); PLATELET COUNT, AUTOMATED 150 10^3/uL (150-450); RED BLOOD COUNT 3.04 10^6/uL (4.00-5.40); WHITE BLOOD COUNT 10.3 10^3/uL (4.0-10.0)
[2024-01-01 05:46] VITALS: BP 132/70; TEMP 97.3; O2SAT 100
[2024-01-01 05:54] LABS: CALCIUM LEVEL 8.5 MG/DL (8.5-10.1); CREATININE FOR GFR 1.6 MG/DL (0.55-1.30); GLOMERULAR FILTRATION RATE 36.6 (>58); MAGNESIUM LEVEL 1.7 MG/DL (1.8-2.4); POTASSIUM SERUM 3.9 MMOL/L (3.5-5.1)
[2024-01-01] MEDS: MAG SULF 1GM/100ML (MAG RUN) 1 GM in IV 1 EA IV SCH (06:45)
[2024-01-01] MEDS: DICYCLOMINE 10 MG CAP PO SCH (12:09)
[2024-01-01 14:00] VITALS: BP 122/72; TEMP 97.3; O2SAT 100
[2024-01-01] MEDS: oxyCODONE 5MG TAB PO PRN (16:14)
[2024-01-01] MEDS: INSULIN LISPRO (NovoLOG) PER UNIT SC SCH (17:19)
[2024-01-01] MEDS: CALC IV SCH (17:57)
[2024-01-01] MEDS: POTASSIUM CHLORIDE IV SCH (17:57)
[2024-01-01] MEDS: ELECTROLYTE IV SCH (17:57)
[2024-01-01] MEDS: DEX IV SCH (17:57)
[2024-01-01] MEDS: AMINO AC IV SCH (17:57)
[2024-01-01] MEDS: FAT EMULSION IV 250 ML IV ONE (17:58)
[2024-01-01 20:00] VITALS: BP 130/78; TEMP 97.3; O2SAT 99
[2024-01-02] VITALS (11 sets, daily range): BP systolic 126–138; BP diastolic 70–80; TEMP 97.2–97.3; O2SAT 95–98
[2024-01-02] MEDS: AMITRIPTYLINE 10MG TABLET PO SCH (02:04)
[2024-01-02 08:08] LABS: BASO # 0.1 10^3/uL (0.0-0.2); BASO % 0.5 % (0.0-1.0); EOS # 0.2 10^3/uL (0.0-0.5); EOS % 1.5 % (0.0-3.0); HEMATOCRIT 29.5 % (36.0-47.0); HEMOGLOBIN 9.7 g/dl (12.0-15.5); LYMPH # 0.5 10^3/uL (1.5-5.0); LYMPH % 4.9 % (24.0-44.0); MEAN CORPUSCULAR HEMOGLOBIN 31.4 pg (27.0-33.0); MEAN CORPUSCULAR HGB CONC 32.9 g/dl (32.0-36.5); MEAN CORPUSCULAR VOLUME 95.5 fl (80.0-96.0); MONO # 1.1 10^3/uL (0.0-0.8); MONO % 9.9 % (2.0-8.0); NEUTROPHILS # 8.5 10^3/uL (1.5-8.5); NEUTROPHILS % 77.2 % (36.0-66.0); PLATELET COUNT, AUTOMATED 133 10^3/uL (150-450); RED BLOOD COUNT 3.09 10^6/uL (4.00-5.40); WHITE BLOOD COUNT 11.1 10^3/uL (4.0-10.0)
[2024-01-02 08:30] LABS: CALCIUM LEVEL 8.6 MG/DL (8.5-10.1); CREATININE FOR GFR 1.67 MG/DL (0.55-1.30); GLOMERULAR FILTRATION RATE 34.9 (>58); POTASSIUM SERUM 4.1 MMOL/L (3.5-5.1)
[2024-01-02] MEDS: PROMETHAZINE 25MG/ML 1ML VIAL IV SCH (10:38)
[2024-01-02] MEDS: oxyCODONE 5MG TAB PO PRN (11:11)
[2024-01-02] MEDS: ACETAMINOPHEN *IV* 1,000 MG in IV 1 EA IV ONE (11:48)
[2024-01-02] MEDS: oxyCODONE 20MG CR TAB PO SCH (12:22)
[2024-01-02] MEDS: INSULIN LISPRO (NovoLOG) PER UNIT SC SCH (17:02)
[2024-01-02] MEDS: MULTIVITAMIN -ADULT INJECTION 10 ML, ZINC/COPPER/MANGANESE/SELENIUM 1 ML in AMINO AC/EL... IV SCH (18:12)
[2024-01-02] MEDS: FAT EMULSION IV 250 ML IV ONE (18:12)
[2024-01-02] MEDS: NS 1,000 ML IV SCH (18:42)
[2024-01-03 05:21] LABS: BASO % 0.4 % (0.0-1.0); EOS # 0.2 10^3/uL (0.0-0.5); HEMATOCRIT 25.7 % (36.0-47.0); HEMOGLOBIN 8.5 g/dl (12.0-15.5); LYMPH # 0.4 10^3/uL (1.5-5.0); LYMPH % 4.5 % (24.0-44.0); MEAN CORPUSCULAR HEMOGLOBIN 31.3 pg (27.0-33.0); MEAN CORPUSCULAR HGB CONC 33.1 g/dl (32.0-36.5); MEAN CORPUSCULAR VOLUME 94.5 fl (80.0-96.0); MONO # 0.9 10^3/uL (0.0-0.8); MONO % 10.1 % (2.0-8.0); NEUTROPHILS # 6.6 10^3/uL (1.5-8.5); NEUTROPHILS % 77.7 % (36.0-66.0); PLATELET COUNT, AUTOMATED 118 10^3/uL (150-450); RED BLOOD COUNT 2.72 10^6/uL (4.00-5.40); WHITE BLOOD COUNT 8.5 10^3/uL (4.0-10.0)
[2024-01-03 05:22] VITALS: BP 116/58; TEMP 97.2; O2SAT 99
[2024-01-03 05:52] LABS: CREATININE FOR GFR 1.7 MG/DL (0.55-1.30); GLOMERULAR FILTRATION RATE 34.1 (>58); MAGNESIUM LEVEL 1.7 MG/DL (1.8-2.4)
[2024-01-03] MEDS: MAG SULF 1GM/100ML (MAG RUN) 1 GM in IV 1 EA IV ONE (10:16)
[2024-01-03] MEDS: SUCRALFATE 1 GM TAB PO SCH (12:04)
[2024-01-03 14:00] VITALS: BP 132/88; TEMP 97.2; O2SAT 97
[2024-01-03] MEDS: INSULIN LISPRO (NovoLOG) PER UNIT SC SCH (17:36)
[2024-01-03] MEDS: AMINO AC/ELECTROLYTE/DEX/CALC 2,000 ML IV SCH (18:29)
[2024-01-03] MEDS: FAT EMULSION IV 250 ML IV ONE (18:30)
[2024-01-03] MEDS: PANTOPRAZOLE 40MG TAB (PROTONIX) PO SCH (20:52)
[2024-01-03 21:45] VITALS: BP 142/76; TEMP 97.2; O2SAT 98
[2024-01-04 06:00] VITALS: BP 112/68; TEMP 97; O2SAT 97
[2024-01-04 06:15] LABS: BASO % 0.4 % (0.0-1.0); EOS # 0.1 10^3/uL (0.0-0.5); EOS % 2.7 % (0.0-3.0); HEMATOCRIT 22.5 % (36.0-47.0); LYMPH # 0.3 10^3/uL (1.5-5.0); LYMPH % 5.4 % (24.0-44.0); MEAN CORPUSCULAR HEMOGLOBIN 35.7 pg (27.0-33.0); MEAN CORPUSCULAR HGB CONC 35.6 g/dl (32.0-36.5); MEAN CORPUSCULAR VOLUME 100.4 fl (80.0-96.0); MONO # 0.5 10^3/uL (0.0-0.8); NEUTROPHILS # 3.7 10^3/uL (1.5-8.5); NEUTROPHILS % 76.7 % (36.0-66.0); PLATELET COUNT, AUTOMATED 115 10^3/uL (150-450); RED BLOOD COUNT 2.24 10^6/uL (4.00-5.40); WHITE BLOOD COUNT 4.8 10^3/uL (4.0-10.0)
[2024-01-04 08:08] LABS: CALCIUM LEVEL 7.5 MG/DL (8.5-10.1); CREATININE FOR GFR 1.71 MG/DL (0.55-1.30); GLOMERULAR FILTRATION RATE 33.9 (>58); MAGNESIUM LEVEL 1.6 MG/DL (1.8-2.4); POTASSIUM SERUM 3.9 MMOL/L (3.5-5.1)
[2024-01-04] MEDS: SENNA 8.6 MG TAB (SENOKOT) PO PRN (09:41)
[2024-01-04] MEDS: MAG SULF 1GM/100ML (MAG RUN) 1 GM in IV 1 EA IV ONE (10:12)
[2024-01-04 14:00] VITALS: BP 110/68; TEMP 97.5; O2SAT 98
[2024-01-04] MEDS: INSULIN LISPRO (NovoLOG) PER UNIT SC SCH (17:03)
[2024-01-04] MEDS: AMINO AC/ELECTROLYTE/DEX/CALC 2,000 ML IV SCH (18:04)
[2024-01-04] MEDS: FAT EMULSION IV 250 ML IV ONE (18:04)
[2024-01-04 20:00] VITALS: BP 100/58; TEMP 97.2; O2SAT 97
[2024-01-05 05:18] LABS: BASO % 0.4 % (0.0-1.0); EOS # 0.1 10^3/uL (0.0-0.5); EOS % 2.7 % (0.0-3.0); HEMATOCRIT 22.4 % (36.0-47.0); HEMOGLOBIN 7.4 g/dl (12.0-15.5); LYMPH # 0.3 10^3/uL (1.5-5.0); LYMPH % 6.4 % (24.0-44.0); MEAN CORPUSCULAR HEMOGLOBIN 31.6 pg (27.0-33.0); MEAN CORPUSCULAR VOLUME 95.7 fl (80.0-96.0); MONO # 0.6 10^3/uL (0.0-0.8); MONO % 11.5 % (2.0-8.0); NEUTROPHILS # 3.7 10^3/uL (1.5-8.5); NEUTROPHILS % 75.7 % (36.0-66.0); PLATELET COUNT, AUTOMATED 117 10^3/uL (150-450); RED BLOOD COUNT 2.34 10^6/uL (4.00-5.40); WHITE BLOOD COUNT 4.9 10^3/uL (4.0-10.0)
[2024-01-05 05:36] LABS: CALCIUM LEVEL 7.6 MG/DL (8.5-10.1); CREATININE FOR GFR 1.77 MG/DL (0.55-1.30); GLOMERULAR FILTRATION RATE 32.6 (>58); MAGNESIUM LEVEL 1.7 MG/DL (1.8-2.4); POTASSIUM SERUM 3.7 MMOL/L (3.5-5.1)
[2024-01-05 06:00] VITALS: BP 116/70; TEMP 97.3; O2SAT 100
[2024-01-05] MEDS: diphenhydrAMINE 50MG CAP PO ONE (15:00)
[2024-01-05] MEDS: ACETAMINOPHEN TAB 650MG DOSE (2X325MG) PO ONE (15:00)
[2024-01-05 16:28] LABS: HEMATOCRIT 27.6 % (36.0-47.0); HEMOGLOBIN 8.9 g/dl (12.0-15.5)
[2024-01-05] MEDS: INSULIN LISPRO (NovoLOG) PER UNIT SC SCH (17:56)
[2024-01-05] MEDS: MULTIVITAMIN -ADULT INJECTION 10 ML, ZINC/COPPER/MANGANESE/SELENIUM 1 ML in AMINO AC/EL... IV SCH (18:48)
[2024-01-05] MEDS: FAT EMULSION IV 250 ML IV ONE (18:49)
[2024-01-05] MEDS: DOCUSATE SODIUM 100MG CAPSULE PO SCH (21:27)
[2024-01-05 21:30] VITALS: BP 104/62; TEMP 97.2; O2SAT 98
[2024-01-05 23:06] LABS: HEMATOCRIT 22.1 % (36.0-47.0); HEMOGLOBIN 7.3 g/dl (12.0-15.5)
[2024-01-06] VITALS (8 sets, daily range): BP systolic 98–132; BP diastolic 52–78; TEMP 97–97.5; O2SAT 95–100
[2024-01-06 04:34] LABS: HEMATOCRIT 24.6 % (36.0-47.0); HEMOGLOBIN 8.7 g/dl (12.0-15.5)
[2024-01-06 05:54] LABS: BASO % 0.5 % (0.0-1.0); EOS # 0.1 10^3/uL (0.0-0.5); EOS % 3.1 % (0.0-3.0); HEMATOCRIT 24.9 % (36.0-47.0); HEMOGLOBIN 8.2 g/dl (12.0-15.5); LYMPH # 0.3 10^3/uL (1.5-5.0); LYMPH % 6.1 % (24.0-44.0); MEAN CORPUSCULAR HEMOGLOBIN 30.5 pg (27.0-33.0); MEAN CORPUSCULAR HGB CONC 32.9 g/dl (32.0-36.5); MEAN CORPUSCULAR VOLUME 92.6 fl (80.0-96.0); MONO # 0.5 10^3/uL (0.0-0.8); MONO % 11.3 % (2.0-8.0); NEUTROPHILS # 3.3 10^3/uL (1.5-8.5); NEUTROPHILS % 76.9 % (36.0-66.0); PLATELET COUNT, AUTOMATED 123 10^3/uL (150-450); RED BLOOD COUNT 2.69 10^6/uL (4.00-5.40); WHITE BLOOD COUNT 4.3 10^3/uL (4.0-10.0)
[2024-01-06 05:59] LABS: CALCIUM LEVEL 7.9 MG/DL (8.5-10.1); CREATININE FOR GFR 1.85 MG/DL (0.55-1.30); MAGNESIUM LEVEL 1.6 MG/DL (1.8-2.4); POTASSIUM SERUM 3.4 MMOL/L (3.5-5.1)
[2024-01-06] MEDS: MOM 30ML SUSPENSION UDC PO ONE (10:53)
[2024-01-06] MEDS: BISACODYL 10MG SUPP PR ONE (10:54)
[2024-01-06] MEDS: SENOKOT S TAB PO ONE (11:15)
[2024-01-06] MEDS ORDERED: MOM 30ML SUSPENSION UDC PO PRN (15:00)
[2024-01-06] MEDS ORDERED: BISACODYL 10MG SUPP PR PRN (15:00)
[2024-01-06] MEDS ORDERED: INSULIN LISPRO (NovoLOG) PER UNIT SC SCH (18:00)
[2024-01-06] MEDS ORDERED: AMINO AC/ELECTROLYTE/DEX/CALC 2,000 ML IV SCH (18:00)
[2024-01-06] MEDS: INSULIN LISPRO (NovoLOG) PER UNIT SC SCH (18:00)
[2024-01-06] MEDS ORDERED: FAT EMULSION IV 250 ML IV ONE (18:00)
[2024-01-06] MEDS: AMINO AC/ELECTROLYTE/DEX/CALC 2,000 ML IV SCH (18:53)
[2024-01-06] MEDS: FAT EMULSION IV 250 ML IV ONE (18:53)
[2024-01-06] MEDS: SENOKOT S TAB PO SCH (21:03)
[2024-01-07 06:10] VITALS: BP 132/86; TEMP 97.2; O2SAT 95
[2024-01-07 09:52] LABS: BASO % 0.4 % (0.0-1.0); EOS # 0.1 10^3/uL (0.0-0.5); EOS % 1.8 % (0.0-3.0); HEMATOCRIT 29.3 % (36.0-47.0); HEMOGLOBIN 9.6 g/dl (12.0-15.5); LYMPH # 0.4 10^3/uL (1.5-5.0); LYMPH % 5.5 % (24.0-44.0); MEAN CORPUSCULAR HEMOGLOBIN 30.5 pg (27.0-33.0); MEAN CORPUSCULAR HGB CONC 32.8 g/dl (32.0-36.5); MONO # 0.7 10^3/uL (0.0-0.8); MONO % 10.1 % (2.0-8.0); NEUTROPHILS # 5.7 10^3/uL (1.5-8.5); NEUTROPHILS % 80.8 % (36.0-66.0); PLATELET COUNT, AUTOMATED 150 10^3/uL (150-450); RED BLOOD COUNT 3.15 10^6/uL (4.00-5.40); WHITE BLOOD COUNT 7.1 10^3/uL (4.0-10.0)
[2024-01-07 10:17] LABS: CALCIUM LEVEL 8.4 MG/DL (8.5-10.1); CREATININE FOR GFR 1.9 MG/DL (0.55-1.30); POTASSIUM SERUM 3.8 MMOL/L (3.5-5.1)
[2024-01-07 14:00] VITALS: BP 140/78; TEMP 97.2; O2SAT 96
[2024-01-07] MEDS: INSULIN LISPRO (NovoLOG) PER UNIT SC SCH (16:51)
[2024-01-07] MEDS: FAT EMULSION IV 250 ML IV ONE (18:46)
[2024-01-07] MEDS: MULTIVITAMIN -ADULT INJECTION 10 ML, ZINC/COPPER/MANGANESE/SELENIUM 1 ML in AMINO AC/EL... IV SCH (18:46)
[2024-01-07 21:10] VITALS: BP 132/68; TEMP 97.3; O2SAT 99
[2024-01-08 06:05] VITALS: BP 114/66; TEMP 97.3; O2SAT 99
[2024-01-08 14:01] VITALS: BP 100/70; TEMP 97.9; O2SAT 100
[2024-01-08 14:54] LABS: ALBUMIN 2.5 G/DL (3.2-5.2); PHOSPHORUS LEVEL 3.8 MG/DL (2.5-4.9)
[2024-01-08] MEDS ORDERED: PROMETHAZINE 25MG SUPP PR PRN (16:15)
[2024-01-08] MEDS: PROMETHAZINE 25MG/ML 1ML VIAL IV PRN (16:37)
[2024-01-08] MEDS: INSULIN LISPRO (NovoLOG) PER UNIT SC SCH (17:33)
[2024-01-08] MEDS: FAT EMULSION IV 250 ML IV ONE (18:27)
[2024-01-08] MEDS: AMINO AC/ELECTROLYTE/DEX/CALC 2,000 ML IV SCH (18:27)
[2024-01-08 22:00] VITALS: BP 142/78; TEMP 97.3; O2SAT 99
[2024-01-09 06:08] VITALS: BP 126/72; TEMP 97.2; O2SAT 99
[2024-01-09 08:28] VITALS: BP 126/72
[2024-01-09] MEDS ORDERED: ALPR0.25 PO (09:40)
[2024-01-09] MEDS ORDERED: AMLO1TAB25 PO (09:40)
[2024-01-09] MEDS ORDERED: AMIT10TA7 PO (09:40)
[2024-01-09] MEDS ORDERED: BISA10SU PR (09:40)
[2024-01-09] MEDS ORDERED: DICY1CAP8 PO (09:40)
[2024-01-09 11:13] LABS: CREATININE FOR GFR 1.77 MG/DL (0.55-1.30); GLOMERULAR FILTRATION RATE 32.6 (>58); MAGNESIUM LEVEL 1.6 MG/DL (1.8-2.4); PHOSPHORUS LEVEL 4.3 MG/DL (2.5-4.9); PREALBUMIN 9.5 MG/DL (10.0-40.0)
[2024-01-09 11:28] LABS: CALCIUM LEVEL 7.8 MG/DL (8.5-10.1); POTASSIUM SERUM 3.5 MMOL/L (3.5-5.1)
[2024-01-09] MEDS ORDERED: SIME80TA16 PO (12:39)
[2024-01-09] MEDS ORDERED: OXYC20TA40 PO (12:39)
[2024-01-09] MEDS ORDERED: SENN-52 PO (12:39)
[2024-01-09] MEDS ORDERED: OXYC-517 PO (12:39)
[2024-01-09] MEDS ORDERED: MESA50SU PR (12:39)
[2024-01-09] MEDS ORDERED: PANT40TA29 PO (12:39)
[2024-01-09] MEDS ORDERED: SUCR1TA PO (12:39)
[2024-01-09] MEDS ORDERED: GABA-1171 PO (12:39)
[2024-01-09] MEDS ORDERED: LIDO5TD TD (12:39)
[2024-01-12] MEDS ORDERED: [UNRECOGNIZED DRUG - CODE] IV (16:34)
== END 2024-01-09 16:19 | disposition home health service (06) | DRG 254 ==
LOC: M ED 16:10 → M ED INP 12-17 05:56 → ENRESERV 12-17 11:57 → M MSPAV 12-17 12:56
PROVIDERS: ADMIT Family Medicine; ATTEND General Practice
PROC: 30233N1 Transfusion of Nonautologous Red Blood Cells into Peripheral Vein, Percutaneous Approach (ICD-10-PCS; 2023-12-17)
PROC: 0W3P8ZZ Control Bleeding in Gastrointestinal Tract, Via Natural or Artificial Opening Endoscopic (ICD-10-PCS; 2023-12-19)
PROC: 0DBN8ZX Excision of Sigmoid Colon, Via Natural or Artificial Opening Endoscopic, Diagnostic (ICD-10-PCS; principal; 2023-12-19 15:00)
PROC: 0T9B70Z Drainage of Bladder with Drainage Device, Via Natural or Artificial Opening (ICD-10-PCS; 2023-12-21)
DX: K62.7 Radiation proctitis (principal); N17.9 Acute kidney failure, unspecified; K52.1 Toxic gastroenteritis and colitis; D59.2 Drug-induced nonautoimmune hemolytic anemia; N13.30 Unspecified hydronephrosis; D62 Acute posthemorrhagic anemia; K56.7 Ileus, unspecified; N18.30 Chronic kidney disease, stage 3 unspecified; E83.42 Hypomagnesemia; G62.9 Polyneuropathy, unspecified; R13.10 Dysphagia, unspecified; C53.9 Malignant neoplasm of cervix uteri, unspecified; R53.1 Weakness; Z66 Do not resuscitate; T45.1X5A Adverse effect of antineoplastic and immunosuppressive drugs, initial encounter; I12.9 Hypertensive chronic kidney disease with stage 1 through stage 4 chronic kidney disease, or unspecified chronic kidney disease; G25.0 Essential tremor; G43.909 Migraine, unspecified, not intractable, without status migrainosus; M16.12 Unilateral primary osteoarthritis, left hip; F41.9 Anxiety disorder, unspecified; K21.9 Gastro-esophageal reflux disease without esophagitis; K12.32 Oral mucositis (ulcerative) due to other drugs; K57.32 Diverticulitis of large intestine without perforation or abscess without bleeding; K92.1 Melena; R93.3 Abnormal findings on diagnostic imaging of other parts of digestive tract; N76.0 Acute vaginitis; R50.84 Febrile nonhemolytic transfusion reaction; G89.3 Neoplasm related pain (acute) (chronic); E87.6 Hypokalemia; Z92.21 Personal history of antineoplastic chemotherapy; Z92.3 Personal history of irradiation; Z79.899 Other long term (current) drug therapy; Z88.2 Allergy status to sulfonamides; Z88.5 Allergy status to narcotic agent; Z91.030 Bee allergy status; Z91.040 Latex allergy status; Z90.49 Acquired absence of other specified parts of digestive tract

== ENCOUNTER → 2024-04-06 | Outpatient (CLI) | payer BC ==
[~2024-04-06] MED LIST changes: +ACET-897 PO; +ALPR0.25 PO; +AMIT10TA7 PO; +AMLO1TAB25 PO; +BISA10SU PR; +CHOL125C6 PO; +CITR500T PO; +DICY1CAP8 PO; +DIFI200T PO; +DOCU100C16 PO; +ESTR1CAP2 PO; +FAMO1TAB11 PO; +HALO1TAB19 PO; +LIDO5TD TD; +LORA-622 PO; +MESA50SU PR; +OMEP-173 PO; +ONDA-282 PO; -ONDA4TAB6 PO; +OXYC20TA40 PO; +PREN1CAP8 PO; +SENN-52 PO; +SIME80TA16 PO; +[UNRECOGNIZED DRUG - CODE] IV
== END ==
LOC: M PLAIMG 13:51
PROVIDERS: ATTEND Internal Medicine Medical Oncology
DX: C53.9 Malignant neoplasm of cervix uteri, unspecified (principal)

== ENCOUNTER 2024-06-08 08:03 | Inpatient (IN) | payer MEDICAID, SELFPAY ==
[~2024-06-08] VITALS: Ht 170.2 cm; Wt 55.3 kg
[~2024-06-08 08:03] MED LIST changes: +OXYC-673 PO
[2024-06-08] MEDS ORDERED: fentaNYL 100 MCG/2 ML INJECTION IV PRN (09:00)
[2024-06-08] MEDS: ONDANSETRON 4MG 2ML VIAL IV ONE (09:00)
[2024-06-08 09:21] LABS: BASO % 0.1 % (0.0-1.0); EOS % 0.2 % (0.0-3.0); HEMATOCRIT 26.6 % (36.0-47.0); HEMOGLOBIN 8.8 g/dl (12.0-15.5); LYMPH # 0.4 10^3/uL (1.5-5.0); MEAN CORPUSCULAR HEMOGLOBIN 31.1 pg (27.0-33.0); MEAN CORPUSCULAR HGB CONC 33.1 g/dl (32.0-36.5); MONO # 1.6 10^3/uL (0.0-0.8); MONO % 7.4 % (2.0-8.0); NEUTROPHILS # 19.1 10^3/uL (1.5-8.5); NEUTROPHILS % 88.9 % (36.0-66.0); PLATELET COUNT, AUTOMATED 376 10^3/uL (150-450); RED BLOOD COUNT 2.83 10^6/uL (4.00-5.40); WHITE BLOOD COUNT 21.5 10^3/uL (4.0-10.0)
[2024-06-08] MEDS: HYDROMORPHONE HCL 0.5 MG/ 0.5 ML SYRINGE IV PRN ×5 (09:48→23:06)
[2024-06-08] MEDS: PROMETHAZINE 25MG/ML 1ML VIAL IV ONE (09:48)
[2024-06-08 09:49] LABS: CALCIUM LEVEL 8.5 MG/DL (8.5-10.1); CREATININE FOR GFR 1.47 MG/DL (0.55-1.30); GLOMERULAR FILTRATION RATE 40.4 (>58); POTASSIUM SERUM 3.4 MMOL/L (3.5-5.1)
[2024-06-08] MEDS ORDERED: OXYC-673 PO (10:08)
[2024-06-08] MEDS ORDERED: AMLO1TAB25 PO (10:08)
[2024-06-08] MEDS ORDERED: HYOS125TA PO (10:08)
[2024-06-08] MEDS ORDERED: PRED5PAK PO (10:08)
[2024-06-08] MEDS ORDERED: ACET-683 PO (10:08)
[2024-06-08] MEDS ORDERED: HYDR-3363 PO (10:08)
[2024-06-08] MEDS ORDERED: HOME MED LIST COMPLETE! XX SCH (10:10)
[2024-06-08] MEDS: SODIUM CHLORIDE 0.9% INJ 10 ML SYR IV PRN (10:49)
[2024-06-08] MEDS ORDERED: ISOVUE-370 76% 100ML VIAL As Ordered ONE (12:39)
[2024-06-08] MEDS: LORazepam 2 MG/ML 1ML VIAL IV STA (14:07)
[2024-06-08] MEDS: CIPROFLOXACIN 400 MG in IV 1 EA IV ONE (16:54)
[2024-06-08] MEDS: metroNIDAZOLE 500 MG in IV 1 EA IV ONE (18:14)
[2024-06-08 18:55] LABS: BASO % 0.1 % (0.0-1.0); EOS % 0.2 % (0.0-3.0); HEMATOCRIT 23.8 % (36.0-47.0); HEMOGLOBIN 7.8 g/dl (12.0-15.5); LYMPH # 0.3 10^3/uL (1.5-5.0); LYMPH % 2.4 % (24.0-44.0); MEAN CORPUSCULAR HEMOGLOBIN 30.6 pg (27.0-33.0); MEAN CORPUSCULAR HGB CONC 32.8 g/dl (32.0-36.5); MEAN CORPUSCULAR VOLUME 93.3 fl (80.0-96.0); MONO # 0.9 10^3/uL (0.0-0.8); MONO % 7.4 % (2.0-8.0); NEUTROPHILS # 10.8 10^3/uL (1.5-8.5); NEUTROPHILS % 88.3 % (36.0-66.0); RED BLOOD COUNT 2.55 10^6/uL (4.00-5.40); WHITE BLOOD COUNT 12.3 10^3/uL (4.0-10.0)
[2024-06-08 18:58] LABS: PLATELET COUNT, AUTOMATED 235 10^3/uL (150-450)
[2024-06-08] MEDS: NS 1,000 ML IV ONE (23:05)
[2024-06-09] MEDS ORDERED: fentaNYL 100 MCG/HR PATCH TOP ONE (00:20)
[2024-06-09] MEDS: FENTANYL REMOVAL DOCUMENTATION MISC XX SCH ×2 (00:20→04:00)
[2024-06-09] MEDS: LORazepam 2 MG/ML 1ML VIAL IV STA (00:34)
[2024-06-09] MEDS ORDERED: HYOSCYAMINE SULFATE 0.125 MG SUBL TABLET PO PRN (01:35)
[2024-06-09] MEDS ORDERED: ONDANSETRON 4MG ORAL DISINTEGRATING TAB PO PRN (01:35)
[2024-06-09] MEDS ORDERED: PERCOCET 5MG/325MG TAB PO PRN ×2 (01:35)
[2024-06-09] MEDS ORDERED: HYDROMORPHONE HCL 0.5 MG/ 0.5 ML SYRINGE IV PRN ×2 (03:10→10:10)
[2024-06-09] MEDS: HYDROMORPHONE HCL 0.5 MG/ 0.5 ML SYRINGE IV PRN (03:48)
[2024-06-09 07:50] VITALS: BP 123/82; TEMP 98.1; O2SAT 100
[2024-06-09] MEDS: fentaNYL 25 MCG/HR PATCH TOP SCH (07:59)
[2024-06-09] MEDS: LORazepam 1 MG TAB PO PRN (09:57)
[2024-06-09] MEDS: HYDROmorphone HCL 2MG/ML 1ML VIAL IV PRN ×3 (11:22→19:52)
[2024-06-09] MEDS ORDERED: HYDROmorphone HCL 2MG/ML 1ML VIAL IV PRN (19:30)
[2024-06-09] MEDS: PROMETHAZINE 25 MG TAB PO PRN (19:59)
[2024-06-09 22:33] VITALS: BP 131/78; TEMP 97.3; O2SAT 96
[2024-06-10] MEDS ORDERED: SLF 3 ML SYR IV PRN (03:25)
[2024-06-10] MEDS: SLF 3 ML SYR IV SCH (05:18)
[2024-06-10] MEDS: HYDROmorphone HCL 2MG/ML 1ML VIAL IV SCH (12:35)
[2024-06-10] MEDS: LORazepam 2 MG/ML 1ML VIAL IV SCH (13:57)
[2024-06-10] MEDS: PROMETHAZINE 25MG/ML 1ML VIAL IV SCH (13:58)
[2024-06-10] MEDS: HYDROmorphone HCL 2MG/ML 1ML VIAL IV PRN (19:50)
[2024-06-11] MEDS: HYDROmorphone HCL 2MG/ML 1ML VIAL IV PRN (12:26)
[2024-06-11] MEDS: HYDROmorphone HCL 2MG/ML 1ML VIAL IV SCH (14:02)
[2024-06-11] MEDS: LORazepam 2 MG/ML 1ML VIAL IV PRN (18:49)
[2024-06-12] MEDS: HALOPERIDOL LACTATE 5MG/ML VIAL IV PRN (12:10)
[2024-06-12] MEDS: LORazepam 2 MG/ML 1ML VIAL IV SCH (12:10)
[2024-06-14] MEDS ORDERED: FENTANYL DRIP LOCK BOX KEY 1 EACH XX PRN (09:00)
[2024-06-14] MEDS: fentaNYL CITRATE/NaCl 1,000 MCG in IV 1 EA IV SCH (10:42)
[2024-06-14] MEDS ORDERED: LORazepam 2 MG/ML 1ML VIAL IV SCH (14:00)
[2024-06-14] MEDS: LORazepam 2 MG/ML 1ML VIAL IV PRN (21:42)
[2024-06-15] MEDS ORDERED: HYDROmorphone HCL 2MG/ML 1ML VIAL IV PRN (09:15)
[2024-06-15] MEDS: HALOPERIDOL LACTATE 5MG/ML VIAL IV SCH (09:45)
[2024-06-15] MEDS: LORazepam 2 MG/ML 1ML VIAL IV SCH (09:45)
[2024-06-15] MEDS: HALOPERIDOL LACTATE 5MG/ML VIAL IV PRN (15:22)
== END 2024-06-15 17:55 | disposition expired | DRG 862 ==
LOC: M ED 08:03 → M ED INP 06-09 01:33 → M MS5PR 06-09 07:50
PROVIDERS: ADMIT Student in an Organized Health Care Education/Training Program; ATTEND Internal Medicine Nephrology
DX: Z51.5 Encounter for palliative care (principal); R57.1 Hypovolemic shock; E43 Unspecified severe protein-calorie malnutrition; A41.9 Sepsis, unspecified organism; G92.8 Other toxic encephalopathy; K65.9 Peritonitis, unspecified; C77.0 Secondary and unspecified malignant neoplasm of lymph nodes of head, face and neck; D62 Acute posthemorrhagic anemia; E87.1 Hypo-osmolality and hyponatremia; N32.1 Vesicointestinal fistula; K92.2 Gastrointestinal hemorrhage, unspecified; K61.1 Rectal abscess; N13.30 Unspecified hydronephrosis; N18.30 Chronic kidney disease, stage 3 unspecified; Z66 Do not resuscitate; I12.9 Hypertensive chronic kidney disease with stage 1 through stage 4 chronic kidney disease, or unspecified chronic kidney disease; C53.9 Malignant neoplasm of cervix uteri, unspecified; D50.9 Iron deficiency anemia, unspecified; G43.909 Migraine, unspecified, not intractable, without status migrainosus; M16.9 Osteoarthritis of hip, unspecified; G25.0 Essential tremor; K62.89 Other specified diseases of anus and rectum; Z90.49 Acquired absence of other specified parts of digestive tract; Z79.899 Other long term (current) drug therapy; Z79.52 Long term (current) use of systemic steroids; Z88.5 Allergy status to narcotic agent; Z88.2 Allergy status to sulfonamides; Z91.040 Latex allergy status; Z91.030 Bee allergy status